=== PATIENT | female | born 1965 | race Caucasian/White ===

== ENCOUNTER 2016-12-16 16:27 | Emergency (ER) | payer MEDICAID ==
[~2016-12-16] VITALS: Ht 154.9 cm; Wt 81.6 kg
[2016-12-16 16:40] VITALS: BP 132/73
--- NOTE | 2016-12-16 17:26 | NUR ---
PT AMBULATED TO BED 3.
--- NOTE | 2016-12-16 17:28 | NUR ---
51F BIB FAMILY C/O RT RIB PAIN, THROBBING, NON-RADIATING, 8/10 X YESTERDAY; PT STATES FELL AND HURT RIB; DENIES LOC OR INJURY TO HEAD AT THIS TIME; NO BRUISING OR DISCOLORATION NOTED TO RT RIB AT THIS TIME; PT C/O NAUSEA, BUT DENIES V/D AT THIS TIME; ABDOMEN SOFT, NON-TENDER, ACTIVE BOWEL SOUNDS X 4 QUADRANTS; PT A&OX4, PERRLA, BL LUNG SOUNDS CLEAR, RR EVEN/UNLABORED, SKIN IS WARM/DRY/INTACT AT THIS TIME; PT RESTING IN BED W/ HOB ELEVATED AND IN LOWEST POSITION; POSITIONED FOR COMFORT; ER MD MADE AWARE OF STATUS. WILL CONTINUE TO MONITOR.
[2016-12-16] MEDS ORDERED: KETOROLAC 30 MG/ML VIAL IM ONE (17:30)
--- NOTE | 2016-12-16 17:30 | NUR ---
Patient being evaluated by physician at bedside.
[2016-12-16 18:11] VITALS: BP 120/69
--- NOTE | 2016-12-16 18:11 | NUR ---
Patient discharged with v/s stable. Written and verbal after care instructions given and explained. Patient alert, oriented and verbalized understanding of instructions. Ambulatory with steady gait. All questions addressed prior to discharge. ID band removed. Patient advised to follow up with PMD. Rx of MOTRIN 600MG TAB given. Patient educated on indication of medication including possible reaction and side effects. Opportunity to ask questions provided and answered.
== END 2016-12-16 18:11 | disposition home or self-care (01) ==
LOC: MED 16:27
DX: S20.20XA Contusion of thorax, unspecified, initial encounter (principal); W19.XXXA Unspecified fall, initial encounter; Y93.89 Activity, other specified; Y92.89 Other specified places as the place of occurrence of the external cause; Y99.8 Other external cause status
CPT/HCPCS: 71101; 96372; 99284; J1885

== ENCOUNTER 2017-03-01 09:24 | Emergency (ER) | payer SELFPAY ==
[~2017-03-01] VITALS: Ht 149.9 cm; Wt 87.3 kg
[2017-03-01 09:29] VITALS: BP 139/77
--- NOTE | 2017-03-01 09:36 | NUR ---
Pt taken to bed 6.
--- NOTE | 2017-03-01 09:51 | NUR ---
51/F c/o right sided body numbness x5 days. Pt [facility]. Pt c/o right leg numbness and pain. Pt states she also has numbness to right side of body. Lime Slaker and pushes strong and equal bilaterally. No facial droop noted. AOX4, clear speech, VSS. No distress noted.
--- NOTE | 2017-03-01 09:55 | NUR ---
Pt taken to CT via w/c.
--- NOTE | 2017-03-01 10:03 | NUR ---
Pt back from CT.
--- NOTE | 2017-03-01 10:27 | NUR ---
Pt ambulated to restroom with steady gait.
--- NOTE | 2017-03-01 10:39 | NUR ---
Patient being evaluated by Dr. Byrd at bedside.
--- NOTE | 2017-03-01 10:53 | NUR ---
Patient appears to be resting comfortably in bed. VSS.
[2017-03-01] MEDS ORDERED: KETOROLAC 60 MG/2 ML VIAL IM ONE (11:15)
[2017-03-01 11:55] VITALS: BP 111/69
--- NOTE | 2017-03-01 11:55 | NUR ---
Patient discharged with v/s stable. Written and verbal after care instructions given and explained. Patient alert, oriented and verbalized understanding of instructions. Ambulatory with steady gait. All questions addressed prior to discharge. ID band removed. Patient advised to follow up with PMD. Rx of NORCO AND MOTRIN given. Patient educated on indication of medication including possible reaction and side effects. Opportunity to ask questions provided and answered.
== END 2017-03-01 11:55 | disposition home or self-care (01) ==
LOC: MED 09:24
DX: R51 Headache (principal); R20.0 Anesthesia of skin; M54.2 Cervicalgia; I10 Essential (primary) hypertension; E78.5 Hyperlipidemia, unspecified; Z90.49 Acquired absence of other specified parts of digestive tract
CPT/HCPCS: 70450; 96372; 99284; J1885

== ENCOUNTER 2017-07-12 16:14 | Inpatient (IN) | payer MEDICAID ==
[~2017-07-12] VITALS: Ht 149.9 cm; Wt 89.8 kg
[2017-07-12 16:28] VITALS: BP 105/63
--- NOTE | 2017-07-12 16:33 | NUR ---
Patient ambulated to bed 08.
--- NOTE | 2017-07-12 16:38 | NUR ---
PATIENT PRESENTS TO ED WITH C/O COUGH AND HEADACHE . PT STATES SHE HAS BEEN COUGHING FOR 4 DAYS BUT THE COUGH HAS BECAME WORSE FOR THE LAST 2 DAYS. PATIENT REPORTS OF WAKING UP AT NIGHT FEELING BREATHLESS. PATIENT HAS NON PRODUCTIVE COUGH. DENIES N/V/D; SKIN IS PINK/WARM/DRY; AAOX4 WITH EVEN AND STEADY GAIT; LUNGS CLEAR BL; HR EVEN AND REGULAR; PT DENIES ANY FEVER, CP, SOB, OR COUGH AT THIS TIME; PATIENT STATES PAIN OF 7/10 AT THIS TIME; VSS; PATIENT POSITIONED FOR COMFORT; HOB ELEVATED; BEDRAILS UP X2; BED DOWN. ER MD MADE AWARE OF PT STATUS.
[2017-07-12] MEDS ORDERED: ACETAMIN/CODEINE 120/12MG-5ML 5 ML UDC PO ONE (17:00)
[2017-07-12] MEDS ORDERED: KETOROLAC 30 MG/ML VIAL IM ONE (17:00)
[2017-07-12] MEDS ORDERED: NACL 0.9% 3,000 ML IV ONE (17:27)
[2017-07-12] MEDS ORDERED: AZITHROMYCIN 500 MG in DEXTROSE 5% 250 ML IV ONE (17:30)
[2017-07-12] MEDS: NACL 0.9% 1,000 ML IV SCH (17:59)
[2017-07-12] MEDS ORDERED: ACETAMINOPHEN 325 MG TAB PO PRN (18:00)
[2017-07-12] MEDS ORDERED: ONDANSETRON 4 MG/2 ML VIAL IVP PRN (18:00)
[2017-07-12] MEDS ORDERED: AZITHROMYCIN 500 MG INJ VIAL IV ONE (18:01)
[2017-07-12] MEDS ORDERED: cefTRIAXone 1,000 MG VIAL ONE (18:02)
[2017-07-12 18:05] LABS: BASOPHILS # (AUTO) 0.2 K/uL (0.00-0.22); BASOPHILS % (AUTO) 2.2 % (0.0-2.0); EOSINOPHILS # (AUTO) 0.1 K/uL (0-0.4); HEMATOCRIT 39.8 % (36-48); HEMOGLOBIN 13.1 g/dL (12.0-16.0); LYMPHOCYTES # (AUTO) 2.3 K/uL (2.5-16.5); LYMPHOCYTES % (AUTO) 23.8 % (20.5-51.1); MEAN CORPUSCULAR HEMOGLOBIN 30 pg (27-31); MEAN CORPUSCULAR HGB CONC 33 g/dL (33-37); MEAN CORPUSCULAR VOLUME 91 fL (80-94); MONOCYTES # (AUTO) 0.8 K/uL (0.8-1.0); MONOCYTES % (AUTO) 8.6 % (1.7-9.3); NEUTROPHILS # (AUTO) 6.2 K/uL (1.8-7.7); NEUTROPHILS % (AUTO) 64.4 % (42.2-75.2); PLATELET COUNT (AUTO) 219 K/uL (140-450); RED BLOOD CELL COUNT(AUTO) 4.36 MIL/uL (4.20-5.40); WHITE BLOOD COUNT (AUTO) 9.6 K/uL (4.8-10.8)
[2017-07-12 18:18] LABS: ANION GAP 12.7 (8-16); CREATININE 0.8 mg/dL (0.6-1.3); POTASSIUM 3.7 mmol/L (3.5-5.1)
[2017-07-12] MEDS ORDERED: BENZ1LOZ98 MM (18:30)
[2017-07-12] MEDS ORDERED: IBUP-1842 PO (18:30)
[2017-07-12 18:34] LABS: ALBUMIN 3.3 g/dL (3.4-5.0); TOTAL BILIRUBIN 0.8 mg/dL (0.0-1.0)
[2017-07-12] MEDS ORDERED: CALER120 PO (18:40)
[2017-07-12] MEDS ORDERED: LOVA40TA4 PO (18:40)
[2017-07-12] MEDS ORDERED: GABA300C PO (18:40)
[2017-07-12 18:43] LABS: PROTHROMBIN TIME 10.4 secs (10.8-13.4)
--- NOTE | 2017-07-12 18:50 | NUR ---
Patient will be admitted to care of DR CRESPO. Admited to [facility]. Will go to room 119B. Belongings list completed. Report to ROSE ADAIR.
--- NOTE | 2017-07-12 18:50 | NUR ---
PT ARRIVED TO [facility] VIA GURNEY ACCOMPANIED BY MANAGER SUPPORT SERVICES AND FAMILY MEMBER. PT AMBULATED TO BED WITH ASSISTANCE. TELE MONITOR APPLIED. MRSA SWAB DONE. PT IN NO RESPIRATORY DISTRESS. O2 VIA NC 2L. O2 SATING AT 94%. CONTINUED IV INFUSION OF NS @50ML/HR AND AZITHROMAX IVPB. PT TOLERATING MEDS WELL. RECEIVED REPORT FROM ER NURSE. PT IN STABLE CONDITION. ORIENTED PT TO ROOM AND CALL LIGHT. WILL CONTINUE TO MONITOR.
--- NOTE | 2017-07-12 19:00 | NUR ---
RECEIVED CALL FOR LACTIC ACID 2.7. REPORTED TO DR. GUEVARA. WILL WAIT FOR REPEAT LABS AND NEW ORDERS.
[2017-07-12 19:05] LABS: APPEARANCE,URINE CLEAR (CLEAR); BILIRUBIN,URINE NEGATIVE (NEGATIVE); BLOOD, URINE NEGATIVE (NEGATIVE); COLOR,URINE YELLOW (YELLOW); LEUKOCYTE ESTERASE ,URINE NEGATIVE (NEGATIVE); NITRITE, URINE NEGATIVE (NEGATIVE); UGLUCOSE NEGATIVE (NEGATIVE)
--- NOTE | 2017-07-12 19:15 | NUR ---
ENDORSED PT TO OCCASIONAL CAREGIVER NURSE MIESHA AT BEDSIDE FOR CONTINUITY OF CARE. PT'S FAMILY MEMBER AT BEDSIDE. PT IN STABLE CONDITION.
--- NOTE | 2017-07-12 19:17 | NUR ---
RECEIVED REPORT FROM DAY SHIFT NURSE. PT LYING IN BED, FAMILY AT BED SIDE. AAOX4. IV TO RIGHT AC WITH NS @50 ML/HR. ON O2 AT 2L/MIN VIA NC. NO C/O PAIN OR SOB NOTED. DISCUSSED PLAN OF CARE, PT AND FAMILY VERBALIZED UNDERSTANDING. CALL LIGHT WITHIN REACH. WILL CONTINUE TO MONITOR.
[2017-07-12 19:19] LABS: BARBITURATE, URINE NEG. ng/ml (NEG <=200); BENZODIAZEPINE, URINE NEG. ng/mL (NEG <=200); CANNABINOID, URINE NEG. ng/mL (NEG <=50); COCAINE, URINE NEG. ng/mL (NEG <=300); OPIATE, URINE POS. ng/mL (NEG <=2000); PHENCYCLIDINE SCREEN,URINE NEG. ng/mL (NEG <=25)
[2017-07-12] MEDS ORDERED: ALBUTEROL SULFATE/IPRATROPIU 3 ML SOL IH PRN (19:20)
[2017-07-12 19:25] LABS: CHOL/HDL RATIO 3.9 (1-4.5); FREE T4 (FREE THYROXINE) 1.09 ng/dL (0.76-1.46); MAGNESIUM 2.1 mg/dL (1.8-2.4); PHOSPHORUS 2.4 mg/dL (2.5-4.9); THYROID STIMULATING HORMONE 1.53 uIU/mL (0.34-3.74)
[2017-07-12] MEDS: SODIUM PHOS / POTASSIUM PHOS 1 PKT PDR PO SCH (19:45)
[2017-07-12 20:00] VITALS: BP 102/66
--- NOTE | 2017-07-12 20:30 | NUR ---
ASSISTED PT TO THE BATHROOM. NO DISTRESS NOTED.
[2017-07-12] MEDS ORDERED: SODIUM PHOS / POTASSIUM PHOS 1 PKT PDR PO SCH (20:49)
--- NOTE | 2017-07-12 21:15 | NUR ---
SNACK GIVEN TO PT. NO DISTRESS NOTED. ALL NEEDS MET AT THIS TIME. CALL LIGHT WITHIN REACH.
[2017-07-12] MEDS: DOCUSATE SODIUM 100 MG GELCAP PO SCH (21:32)
[2017-07-12] MEDS ORDERED: guaiFENesin/CODEINE 100/10MG 5 ML UDC PO PRN (22:05)
[2017-07-12] MEDS ORDERED: BENZOCAINE/MENTHOL 1 LOZ MM PRN (22:05)
--- NOTE | 2017-07-12 23:40 | NUR ---
PT SLEEPING. NO S/S OF DISCOMFORT OR PAIN. NO COUGHING NOTED. CALL LIGHT WITHIN REACH.
[2017-07-13] VITALS: BP 97/62
--- NOTE | 2017-07-13 01:30 | NUR ---
SCD'S APPLIED. NO DISTRESS NOTED. CALL LIGHT WITHIN REACH.
[2017-07-13] MEDS: HYDROcodone/APAP 7.5/325 MG 1 TAB PO PRN ×2 (03:47→12:11)
[2017-07-13] MEDS ORDERED: CYCLOBENZAPRINE 10 MG TAB PO PRN (03:50)
--- NOTE | 2017-07-13 03:50 | NUR ---
PT C/O HEAD ACHE, ARM AND CHEST PAIN. PT'S V/S WITHIN NORMAL LIMITS. DR. GUEVARA CAME TO SEE PT. ORDERED TO GIVE NORCO. ORDER CARRIED OUT.
[2017-07-13] MEDS ORDERED: ZOLPIDEM 5 MG TAB PO SCH (03:51)
[2017-07-13] MEDS ORDERED: NITROGLYCERIN 0.4 MG TAB SL PRN (03:55)
[2017-07-13 04:00] VITALS: BP 112/71
--- NOTE | 2017-07-13 05:30 | NUR ---
PT SLEEPING. NO S/S OF PAIN OR DISCOMFORT. CALL LIGHT WITHIN REACH.
--- NOTE | 2017-07-13 07:05 | NUR ---
ASSUMED CONTINUITY OF CARE. NO SIGNS AND SYMPTOMS OF ACUTE DISTRESS NOTED. INITIAL ASSESSMENT DONE. KEEP COMFORTABLE ON BED. EXPLAINED DIAGNOSIS, PLAN OF CARE, PAIN MANAGEMENT TEACHING, USE OF CALL LIGHT/BED/TV/BATHROOM. VERBALIZED UNDERSTANDING. CALL LIGHT WITHIN REACH.
--- NOTE | 2017-07-13 07:05 | NUR ---
ENDORSED PT TO DAY SHIFT NURSE. PT IN STABLE CONDITION.
--- NOTE | 2017-07-13 07:10 | NUR ---
Patient's Plan of Care was discussed and reviewed with BRIDGETT: AZIZA
[2017-07-13 07:15] LABS: BASOPHILS # (AUTO) 0.1 K/uL (0.00-0.22); BASOPHILS % (AUTO) 1.4 % (0.0-2.0); EOSINOPHILS # (AUTO) 0.1 K/uL (0-0.4); EOSINOPHILS % (AUTO) 1.3 % (0.0-4.0); HEMATOCRIT 35.2 % (36-48); LYMPHOCYTES # (AUTO) 1.3 K/uL (2.5-16.5); MEAN CORPUSCULAR HEMOGLOBIN 31 pg (27-31); MEAN CORPUSCULAR HGB CONC 34 g/dL (33-37); MEAN CORPUSCULAR VOLUME 91 fL (80-94); MONOCYTES # (AUTO) 0.5 K/uL (0.8-1.0); MONOCYTES % (AUTO) 5.3 % (1.7-9.3); NEUTROPHILS # (AUTO) 7.4 K/uL (1.8-7.7); PLATELET COUNT (AUTO) 203 K/uL (140-450); RED BLOOD CELL COUNT(AUTO) 3.89 MIL/uL (4.20-5.40); RED CELL DISTRIBUTION WIDTH 11.9 % (11.6-13.7); WHITE BLOOD COUNT (AUTO) 9.4 K/uL (4.8-10.8)
[2017-07-13 07:16] LABS: ANION GAP 8.7 (8-16); CARBON DIOXIDE 27.5 mmol/L (21-32); CREATININE 0.6 mg/dL (0.6-1.3); POTASSIUM 3.2 mmol/L (3.5-5.1)
[2017-07-13] MEDS: ALBUTEROL SULFATE/IPRATROPIU 3 ML SOL IH SCH ×3 (07:21→20:20)
--- NOTE | 2017-07-13 07:35 | NUR ---
TOLERATED INCENTIVE SPIROMETRY THERAPY WELL WITHOUT ADVERSE REACTIONS NOTED ENCOURAGED PATIENT WITH ACKNOWLEDGEMENT TO USE EVRY 1-2 HOURS WHILE AWAKE SPECIMEN CUP ON PATIENT TABLE FOR SPUTUM SAMPLE PATIENT AWARE
[2017-07-13 08:00] VITALS: BP 105/60
[2017-07-13 08:06] LABS: MAGNESIUM 1.9 mg/dL (1.8-2.4)
[2017-07-13] MEDS: ASPIRIN 81 MG TAB.CHEW PO SCH (08:34)
[2017-07-13] MEDS: SODIUM PHOS / POTASSIUM PHOS 1 PKT PDR PO SCH ×3 (08:34→16:49)
[2017-07-13] MEDS: DOCUSATE SODIUM 100 MG GELCAP PO SCH ×2 (08:35→20:33)
[2017-07-13] MEDS: LACTOBACILLUS RHAMNOSUS GG 1 EACH CAP PO SCH (08:35)
[2017-07-13] MEDS: AZITHROMYCIN 250 MG TAB PO SCH (08:36)
[2017-07-13] MEDS: GABAPENTIN 300 MG CAP PO SCH (08:36)
[2017-07-13] MEDS: METOPROLOL 25 MG TAB PO SCH ×2 (09:00→20:37)
[2017-07-13] MEDS: LISINOPRIL 5 MG TAB PO SCH (09:00)
[2017-07-13] MEDS ORDERED: PANTOPRAZOLE 40 MG INJ VIAL IVP SCH (09:00)
[2017-07-13] MEDS: VERAPAMIL 120 MG CAPER PO SCH ×3 (09:00→16:49)
--- NOTE | 2017-07-13 10:35 | NUR ---
INFORMED DR. CHIU ABOUT PT. POTASSIUM 3.2. PER DR. CHIU SHE WILL TAKE CARE OF IT. INFORMED CHARGE NURSE CONRAD COLE.
[2017-07-13 12:00] VITALS: BP 102/67
--- NOTE | 2017-07-13 13:10 | NUR ---
LOC AWAKE AND ALERT PATIENT UNABLE TO PRODUCE SPUTUM VIA OROPHARYNX BOATSWAINS MATE VIA JODI/EVS NASO-TRACHEAL PROCEDURE EXPLAINED TO PATIENT WITH ACKNOWLEDGEMENT STERILE PROCEDURE PERFORMED LUBRICATED 10FR CATHETER INSERTED THROUGH RIGHT NARES OBTAINED LARGE THICK BLOOD TINGE SECRETIONS SUPPLEMENTAL OXYGEN PROVIDED PRE AND POST TOLERATED PROCEDURE WELL FOLLOW BY [facility]ERAP[facility]
[2017-07-13] MEDS ORDERED: POTASSIUM CHLORIDE 10 MEQ TABER PO SCH (13:15)
[2017-07-13] MEDS: NACL 0.9% 1,000 ML IV SCH (13:59)
[2017-07-13] MEDS ORDERED: CALCIUM CARBONATE 500 MG TAB PO SCH (15:00)
[2017-07-13 16:00] VITALS: BP 110/59
--- NOTE | 2017-07-13 19:10 | NUR ---
BEDSIDE REPORT GIVEN TO ESTEBAN MESA -ROSE. IVF INFUSING WELL. IN STABLE CONDITION.
--- NOTE | 2017-07-13 19:30 | NUR ---
RECIEVED PATIENT ON BED ALERT AND OREINTED SHORT OF BREATH ON EXERTION ON 2L NASAL CANNULLA O2 SAT 88 % ,O2 INCREASED TO 4L RESPIRATORY THERAPIST INFORMED FOR BREATHING TX . O2 SATS WENT UP TO 94% ON 4L , rESP THERAPIST WILL GIVE BREATHING TX. RESIDENT MD TALKED TO PATIENT PER PATIENT AND FAMILY REQUEST RE MEDICATION CONCERN AND HEADACHE.
[2017-07-13 20:00] VITALS: BP 118/76
[2017-07-13] MEDS: ATORVASTATIN 20 MG TAB PO SCH ×2 (20:32→20:37)
[2017-07-13] MEDS: ASPIRIN PO PRN (20:33)
[2017-07-13] MEDS: ZOLPIDEM 5 MG TAB PO SCH (20:33)
[2017-07-13] MEDS: CODEINE PO PRN (20:33)
[2017-07-13] MEDS: CAFFEINE PO PRN (20:33)
[2017-07-13] MEDS: BUTALBITAL PO PRN (20:33)
--- NOTE | 2017-07-13 22:00 | NUR ---
ALFREDO WITH CODIENE 1 TAB FOR HEADACHE AND ROBITUSSIN 5ML FOR COUGH WAS GIVEN AT 2032 , PATIENT NOW RESTING HEADCHE RELIEVED AND NO COUGH NOTED AT THIS TIME WILL CONTINUE MONITOR PATIENT.
[2017-07-14 04:00] VITALS: BP 118/74
[2017-07-14] MEDS: CODEINE PO PRN ×4 (04:40→23:39)
[2017-07-14] MEDS: CAFFEINE PO PRN ×4 (04:40→23:39)
[2017-07-14] MEDS: BUTALBITAL PO PRN ×4 (04:40→23:39)
[2017-07-14] MEDS: ASPIRIN PO PRN ×4 (04:40→23:39)
[2017-07-14] MEDS: NACL 0.9% 1,000 ML IV SCH (04:42)
[2017-07-14 07:10] LABS: BASOPHILS # (AUTO) 0.2 K/uL (0.00-0.22); BASOPHILS % (AUTO) 1.8 % (0.0-2.0); EOSINOPHILS # (AUTO) 0.1 K/uL (0-0.4); EOSINOPHILS % (AUTO) 1.3 % (0.0-4.0); HEMATOCRIT 34.2 % (36-48); HEMOGLOBIN 11.8 g/dL (12.0-16.0); LYMPHOCYTES # (AUTO) 1.6 K/uL (2.5-16.5); LYMPHOCYTES % (AUTO) 15.7 % (20.5-51.1); MEAN CORPUSCULAR HEMOGLOBIN 31 pg (27-31); MEAN CORPUSCULAR HGB CONC 34 g/dL (33-37); MEAN CORPUSCULAR VOLUME 90 fL (80-94); MONOCYTES # (AUTO) 0.7 K/uL (0.8-1.0); MONOCYTES % (AUTO) 6.3 % (1.7-9.3); NEUTROPHILS # (AUTO) 7.8 K/uL (1.8-7.7); NEUTROPHILS % (AUTO) 74.9 % (42.2-75.2); PLATELET COUNT (AUTO) 196 K/uL (140-450); RED BLOOD CELL COUNT(AUTO) 3.79 MIL/uL (4.20-5.40); RED CELL DISTRIBUTION WIDTH 11.8 % (11.6-13.7); WHITE BLOOD COUNT (AUTO) 10.4 K/uL (4.8-10.8)
--- NOTE | 2017-07-14 07:10 | NUR ---
ASSUMED CONTINUITY OF CARE. NO SIGNS AND SYMPTOMS OF ACUTE DISTRESS NOTICED. INITIAL ASSESSMENT DONE. PT. FAMILY MEMBERS ON BEDSIDE. EXPLAINED DIAGNOSIS, PLAN OF CARE, PAIN MANAGEMENT TEACHING, USE OF CALL LIGHT/BED/TV/BATHROOM. VERBALIZED UNDERSTANDING. CALL LIGHT WITHIN REACH.
[2017-07-14 07:24] LABS: CARBON DIOXIDE 28.5 mmol/L (21-32); CREATININE 0.6 mg/dL (0.6-1.3); POTASSIUM 3.5 mmol/L (3.5-5.1)
[2017-07-14] MEDS: ALBUTEROL SULFATE/IPRATROPIU 3 ML SOL IH SCH ×3 (07:37→18:54)
[2017-07-14 07:38] LABS: MAGNESIUM 1.8 mg/dL (1.8-2.4); PHOSPHORUS 3.2 mg/dL (2.5-4.9)
--- NOTE | 2017-07-14 07:41 | NUR ---
NASAL CANNULA TITRATED TO 3L. PT NOT SOB AND NOT IN RESPIRATORY DISTRESS AT THIS TIME. WILL CONTINUE TO MONITOR.
[2017-07-14 08:00] VITALS: BP 120/70
[2017-07-14] MEDS: LISINOPRIL 5 MG TAB PO SCH (08:46)
[2017-07-14] MEDS: GABAPENTIN 300 MG CAP PO SCH (08:46)
[2017-07-14] MEDS: VERAPAMIL 120 MG CAPER PO SCH ×3 (08:46→16:58)
[2017-07-14] MEDS: CALCIUM CARBONATE 500 MG TAB PO SCH (08:47)
[2017-07-14] MEDS: ATORVASTATIN 20 MG TAB PO SCH ×2 (08:47→21:27)
[2017-07-14] MEDS: DOCUSATE SODIUM 100 MG GELCAP PO SCH ×2 (08:48→21:26)
[2017-07-14] MEDS: METOPROLOL 25 MG TAB PO SCH ×2 (08:48→21:27)
[2017-07-14] MEDS: LACTOBACILLUS RHAMNOSUS GG 1 EACH CAP PO SCH (08:48)
[2017-07-14] MEDS: ASPIRIN 81 MG TAB.CHEW PO SCH (08:49)
[2017-07-14] MEDS: AZITHROMYCIN 250 MG TAB PO SCH (08:49)
[2017-07-14] MEDS: SODIUM PHOS / POTASSIUM PHOS 1 PKT PDR PO SCH ×3 (08:50→16:58)
[2017-07-14] MEDS ORDERED: FUROSEMIDE 20 MG/2 ML VIAL IVP SCH (09:00)
[2017-07-14 09:20] VITALS: BP 125/68
--- NOTE | 2017-07-14 09:26 | NUR ---
PATIENT HAS BEEN SCREENED AND CATEGORIZED HIGH NUTRITION RISK. PATIENT WILL BE SEEN WITHIN 1-2 DAYS OF ADMISSION. 07/13/17-07/14/[address]
--- NOTE | 2017-07-14 11:47 | NUR ---
SPO2 ON 3L NC 96%. NC TITRATED DOWN TO 2L. PT NOT SOB AND NOT IN RESPIRATORY DISTRESS AT THIS TIME . WILL CONTINUE TO MONITOR.
[2017-07-14 12:00] VITALS: BP 112/61
--- NOTE | 2017-07-14 13:51 | NUR ---
07/14/17 RD INITIAL ASSESSMENT COMPLETED PLEASE REFER TO NUTRITION ASSESSMENT UNDER CARE ACTIVITY FOR ESTIMATED NUTRITIONAL NEEDS. RD RECOMMENDATIONS: 1. CONTINUE REGULAR DIET TOLERATED. -NOTE PT WITH GOOD APPETITE, MEETING 100% OF ESTIMATED NUTRITION NEEDS. 2. RD PROVIDED VERBAL DIET EDUCATION AND HANDOUTS TO PT ON LOWERING CHOLESTEROL REQUESTED BY PT. 3. RD WILL F/U 7 DAYS; LOW RISK. AGUEDA MCHUGH RD
--- NOTE | 2017-07-14 14:44 | NUR ---
AMBULATES ON HALLWAY WITHOUT ASSISTANCE. TOLERATED WELL. NO C/O PAIN. NO SOB, NOTED.
[2017-07-14 16:00] VITALS: BP 100/59
--- NOTE | 2017-07-14 18:05 | NUR ---
IV ACCESS ON RIGHT AC GAUGE #20 INFILTRATED, D/C AND REMOVED. INSERTED NEW IV ACCESS ON LEFT HAND WITH GAUGE #20. TOLERATED WELL.
--- NOTE | 2017-07-14 19:22 | NUR ---
BEDSIDE REPORT GIVEN TO MOUNIKA COLE. IVF INFUSING WELL. IN STABLE CONDITION.
--- NOTE | 2017-07-14 19:30 | NUR ---
RECEIVED REPORT FROM AM NURSE. PT IS AAOX4. ON 02 2L VIA NC. FAMILY AT THE BEDSIDE. NO SIGNS OF ACUTE DISTRESS. RESPIRATIONS EVEN AND UNLABORED. SKIN TEMP WARM TO TOUCH, SKIN COLOR APPROPRIATE TO ETHNICITY. IV ACCESS INTACT, PATENT AND ASYMPTOMATIC. PLAN OF CARE DISCUSSED, PT VERBALIZED UNDERSTANDING. ALL SAFETY MEASURES IN PLACE, BED IN LOW POSITION, BILATERAL HALF SIDE RAILS UP, CALL LIGHT WITHIN REACH, WILL CONTINUE TO MONITOR.
[2017-07-14 20:00] VITALS: BP 106/63
[2017-07-14] MEDS: ZOLPIDEM 5 MG TAB PO SCH (21:26)
--- NOTE | 2017-07-14 23:15 | NUR ---
PT IS SLEEPING, AROUSABLE TO VOICE. NO SIGNS OF ACUTE DISTRESS NOTED. RESPIRATIONS EVEN AND UNLABORED. BED IN LOW POSITION, BILATERAL HALF SIDE RAILS UP, CALL LIGHT WITHIN REACH, WILL CONTINUE TO MONITOR.
[2017-07-15] VITALS: BP 112/66
[2017-07-15] MEDS: BUTALBITAL PO PRN (06:40)
[2017-07-15] MEDS: ASPIRIN PO PRN (06:40)
[2017-07-15] MEDS: CODEINE PO PRN (06:40)
[2017-07-15] MEDS: CAFFEINE PO PRN (06:40)
[2017-07-15 06:57] LABS: BASOPHILS # (AUTO) 0.2 K/uL (0.00-0.22); BASOPHILS % (AUTO) 3.5 % (0.0-2.0); EOSINOPHILS # (AUTO) 0.2 K/uL (0-0.4); EOSINOPHILS % (AUTO) 2.8 % (0.0-4.0); HEMATOCRIT 35.1 % (36-48); LYMPHOCYTES # (AUTO) 1.6 K/uL (2.5-16.5); LYMPHOCYTES % (AUTO) 22.3 % (20.5-51.1); MEAN CORPUSCULAR HEMOGLOBIN 31 pg (27-31); MEAN CORPUSCULAR HGB CONC 34 g/dL (33-37); MEAN CORPUSCULAR VOLUME 91 fL (80-94); MONOCYTES # (AUTO) 0.5 K/uL (0.8-1.0); MONOCYTES % (AUTO) 7.1 % (1.7-9.3); NEUTROPHILS # (AUTO) 4.5 K/uL (1.8-7.7); NEUTROPHILS % (AUTO) 64.3 % (42.2-75.2); PLATELET COUNT (AUTO) 212 K/uL (140-450); RED BLOOD CELL COUNT(AUTO) 3.88 MIL/uL (4.20-5.40); RED CELL DISTRIBUTION WIDTH 11.9 % (11.6-13.7)
[2017-07-15 07:08] LABS: CARBON DIOXIDE 30.4 mmol/L (21-32); CREATININE 0.7 mg/dL (0.6-1.3); POTASSIUM 3.4 mmol/L (3.5-5.1)
[2017-07-15 07:18] LABS: MAGNESIUM 1.8 mg/dL (1.8-2.4)
--- NOTE | 2017-07-15 07:30 | NUR ---
ENDORSED PT TO AM NURSE FOR CONTINUITY OF CARE. PT IS IN STABLE CONDITION.
--- NOTE | 2017-07-15 07:35 | NUR ---
ENDORSEMENT RECEIVED FROM MEMBERSHIP ADVISOR NURSE. PATIENT'S RESPIRATION EVEN, UNLABOR. SKIN DRY AND WARM. CALL LIGHT WITHIN REACH. WILL CONTINUE TO MONITOR.
[2017-07-15] MEDS: ALBUTEROL SULFATE/IPRATROPIU 3 ML SOL IH SCH ×2 (07:57→13:10)
[2017-07-15 08:00] VITALS: BP 108/65
--- NOTE | 2017-07-15 08:00 | NUR ---
PATIENT IS AWAKE, ALERT, SITTING ON THE CHAIR. RESPIRATION EVEN, LUNGS SOUND CLEAR THROUGHOUT. CARDIAC WITH S1,S2 PRESENT. BOWEL SOUNDS ACTIVE ALL 4 QUADRANTS. IV 20G LEFT HAND PATENT AND INTACT. DENIED PAIN, SOB AT THIS TIME. CALL LIGHT WITHIN REACH. WILL CONTINUE TO MONITOR
[2017-07-15] MEDS: SODIUM PHOS / POTASSIUM PHOS 1 PKT PDR PO SCH ×2 (08:44→12:27)
[2017-07-15] MEDS: ATORVASTATIN 20 MG TAB PO SCH (08:44)
[2017-07-15] MEDS: GABAPENTIN 300 MG CAP PO SCH (08:45)
[2017-07-15] MEDS: METOPROLOL 25 MG TAB PO SCH (08:45)
[2017-07-15] MEDS: CALCIUM CARBONATE 500 MG TAB PO SCH (08:45)
[2017-07-15] MEDS: LACTOBACILLUS RHAMNOSUS GG 1 EACH CAP PO SCH (08:45)
[2017-07-15] MEDS: VERAPAMIL 120 MG CAPER PO SCH ×2 (08:46→12:31)
[2017-07-15] MEDS: ASPIRIN 81 MG TAB.CHEW PO SCH (08:46)
[2017-07-15] MEDS: LISINOPRIL 5 MG TAB PO SCH (08:46)
[2017-07-15] MEDS: DOCUSATE SODIUM 100 MG GELCAP PO SCH (08:46)
[2017-07-15] MEDS: AZITHROMYCIN 250 MG TAB PO SCH (08:46)
--- NOTE | 2017-07-15 10:30 | NUR ---
PATIENT IS SLEEPING COMFORTABLY, EASILY AROUSABLE BY NAME. FAMILY AT BEDSIDE. NEW IV WAS PLACED ON RIGHT AC. PATIENT TOLERATED WELL. CALL LIGHT WITHIN REACH. WILL CONTINUE TO MONITOR
[2017-07-15 12:15] VITALS: BP 116/74
--- NOTE | 2017-07-15 12:30 | NUR ---
PATIENT AWAKE, ALERT, EATING LUNCH AT BEDSIDE. RESPIRATION EVEN. NO DISTRESS NOTED. DENIED PAIN AT THIS TIME. FAMILY AT BEDSIDE. CALL LIGHT WITHIN REACH. WILL CONTINUE TO MONITOR
--- NOTE | 2017-07-15 14:30 | NUR ---
PT SITTING UP IN BED TALKING WITH FAMILY WITHOUT PROBLEM, O2SAT 98% WITH 2L NC, OXYGEN REMOVED FOR ROOM AIR TRIAL, WILL CONTINUE TO MONITOR.,
[2017-07-15] MEDS ORDERED: AZIT250T11 PO (14:53)
[2017-07-15] MEDS ORDERED: POTASSIUM CHLORIDE 10 MEQ TABER PO SCH (15:18)
[2017-07-15] MEDS ORDERED: CYCLOBENZAPRINE 10 MG TAB PO PRN (15:21)
[2017-07-15] MEDS ORDERED: PNEUMOCOCCAL VACCINE 23 MCG/0.5 ML VIAL IMVAC SCH (15:30)
[2017-07-15] MEDS ORDERED: INFLUENZA VIRUS VACCINE QUAD 0.5 ML SYR IMVAC SCH (15:30)
--- NOTE | 2017-07-15 16:05 | NUR ---
DC INSTRUCTION AND RX INFO GIVEN AND EXPLAINED TO PT AND FAMILY, THEY VERBALIZED FULL UNDERSTANDING, PT O2SAT 94% ON ROOM AIR, IV DC'D CATH TIP INTACT X2, BLEEDING CONTROLLED, VACCINES GIVEN PER PROTOCOL, PT UP OUT OF BED WITHOUT PROBLEM, PT ESCORTED OUT IN WHEELCHAIR, DC HOME NOW WITH FAMILY.
== END 2017-07-15 16:05 | disposition home or self-care (01) | DRG 133 ==
LOC: MED 16:14 → MTU 18:28
PROVIDERS: ADMIT Family Medicine; ATTEND Family Medicine
PROC: 3E0234Z Introduction of Serum, Toxoid and Vaccine into Muscle, Percutaneous Approach (ICD-10-PCS; principal; 2017-07-15)
DX: J96.00 Acute respiratory failure, unspecified whether with hypoxia or hypercapnia (principal); J18.9 Pneumonia, unspecified organism; Z68.41 Body mass index [BMI] 40.0-44.9, adult; E44.1 Mild protein-calorie malnutrition; M94.0 Chondrocostal junction syndrome [Tietze]; K21.9 Gastro-esophageal reflux disease without esophagitis; E78.5 Hyperlipidemia, unspecified; E66.01 Morbid (severe) obesity due to excess calories; E83.39 Other disorders of phosphorus metabolism; E87.6 Hypokalemia; I10 Essential (primary) hypertension; E83.51 Hypocalcemia; Z90.49 Acquired absence of other specified parts of digestive tract; Z23 Encounter for immunization
CPT/HCPCS: 36415; 71010; 71275; 80048; 80053; 80305; 81003; 82140; 82150; 82948; 83036; 83605; 83690; 83735; 83880; 84100; 84439; 84443; 84484; 85025; 85610; 85730; 87040; 87070; 87081; 87086; 87205; 89220; 90658; 90732; 93005; 94640; 96365; 96372; 99285; J0456; J0696; J1885; J1940; J7030; J7060; J7620; Q0092; Q9967

== ENCOUNTER 2017-07-16 23:01 | Emergency (ER) | payer MEDICAID ==
[~2017-07-16] VITALS: Ht 149.9 cm; Wt 87.3 kg
[~2017-07-16 23:01] MED LIST: AZIT250T11 PO; BENZ1LOZ98 MM; CALER120 PO; GABA300C PO; IBUP-1842 PO; LOVA40TA4 PO
[2017-07-16 23:09] VITALS: BP 118/68
[2017-07-16] MEDS ORDERED: ALBUTEROL 0.083% 2.5 MG/3 ML NEBU INH ONE (23:40)
[2017-07-16] MEDS ORDERED: KETOROLAC 30 MG/ML VIAL IM ONE (23:40)
[2017-07-16] MEDS ORDERED: predniSONE 20 MG TAB PO ONE (23:40)
[2017-07-16] MEDS ORDERED: predniSONE 20 MG TAB ONE (23:54)
[2017-07-17] MEDS ORDERED: predniSONE 20 MG TAB ONE (00:08)
[2017-07-17] MEDS ORDERED: NACL 0.9% 500 ML IV ONE (00:40)
[2017-07-17 02:54] VITALS: BP 112/63
== END 2017-07-17 02:54 | disposition home or self-care (01) ==
LOC: MED 23:01
DX: J98.01 Acute bronchospasm (principal); R09.1 Pleurisy; I10 Essential (primary) hypertension; Z79.899 Other long term (current) drug therapy
CPT/HCPCS: 36415; 71010; 71260; 84484; 85379; 94640; 94760; 96360; 96372; 99285; J1885; J7030; J7512; J7613; Q0092; Q9967

== ENCOUNTER 2017-08-30 17:18 | Emergency (ER) | payer MEDICAID ==
[~2017-08-30] VITALS: Ht 149.9 cm; Wt 86.2 kg
[2017-08-30 17:20] VITALS: BP 126/72
--- NOTE | 2017-08-30 17:23 | NUR ---
TO LOBBY, A/W BED, VSBerry , MENDEZ, ERMTaryn NOTED
--- NOTE | 2017-08-30 18:04 | NUR ---
PATIENT TO BED 2 AT THIS TIME.
--- NOTE | 2017-08-30 18:05 | NUR ---
52/F BIB FAMILY C/O COUGH , SORE THROAT ,HEADACHE & BOTH EAR PAIN & DIZZINESS FOR 3 DAYS, LAST NIGHT WITH FEVER. DENIES N/V/D; SKIN IS PINK/WARM/DRY; AAOX4 WITH EVEN AND STEADY GAIT; LUNGS CLEAR BL; HR EVEN AND REGULAR; PATIENT STATES PAIN OF 7/10 AT THIS TIME. PATIENT POSITIONED FOR COMFORT; HOB ELEVATED; BEDRAILS UP X2; BED DOWN. ER MD MADE AWARE OF PT STATUS.
--- NOTE | 2017-08-30 19:10 | NUR ---
Pt report given to ROSE BEAN. Transfer of care at this time.
--- NOTE | 2017-08-30 19:15 | NUR ---
REPORT RECEIVED FROM ROSE ALVARES
[2017-08-30] MEDS ORDERED: KETOROLAC 60 MG/2 ML VIAL IM ONE (19:25)
--- NOTE | 2017-08-30 20:01 | NUR ---
UA SENT TO LAB
[2017-08-30 20:35] LABS: BASOPHILS # (AUTO) 0.3 K/uL (0.00-0.22); EOSINOPHILS # (AUTO) 0.1 K/uL (0-0.4); HEMATOCRIT 37.9 % (36-48); HEMOGLOBIN 13.1 g/dL (12.0-16.0); LYMPHOCYTES # (AUTO) 2.4 K/uL (2.5-16.5); MEAN CORPUSCULAR HEMOGLOBIN 31 pg (27-31); MEAN CORPUSCULAR HGB CONC 35 g/dL (33-37); MEAN CORPUSCULAR VOLUME 88 fL (80-94); MONOCYTES # (AUTO) 0.5 K/uL (0.8-1.0); NEUTROPHILS # (AUTO) 2.4 K/uL (1.8-7.7); PLATELET COUNT (AUTO) 235 K/uL (140-450); RED BLOOD CELL COUNT(AUTO) 4.31 MIL/uL (4.20-5.40); RED CELL DISTRIBUTION WIDTH 12.8 % (11.6-13.7); WHITE BLOOD COUNT (AUTO) 5.7 K/uL (4.8-10.8)
[2017-08-30 20:41] LABS: APPEARANCE,URINE CLEAR (CLEAR); BILIRUBIN,URINE NEGATIVE (NEGATIVE); BLOOD, URINE NEGATIVE (NEGATIVE); COLOR,URINE YELLOW (YELLOW); LEUKOCYTE ESTERASE ,URINE NEGATIVE (NEGATIVE); NITRITE, URINE NEGATIVE (NEGATIVE); PH,URINE 6.5 (5.0-9.0); UGLUCOSE NEGATIVE (NEGATIVE)
[2017-08-30 22:22] LABS: CARBON DIOXIDE 28.3 mmol/L (21-32); CREATININE 0.8 mg/dL (0.6-1.3); POTASSIUM 3.3 mmol/L (3.5-5.1); TOTAL BILIRUBIN 0.6 mg/dL (0.0-1.0)
[2017-08-30 22:23] LABS: ALBUMIN 3.5 g/dL (3.4-5.0)
[2017-08-30 22:35] VITALS: BP 136/76
--- NOTE | 2017-08-30 22:35 | NUR ---
Patient discharged with v/s stable. Written and verbal after care instructions given and explained. Patient alert, oriented and verbalized understanding of instructions. Ambulatory with steady gait. All questions addressed prior to discharge. ID band removed. Patient advised to follow up with PMD. Rx of TRAMADOL AND AUGMENTIN given. Patient educated on indication of medication including possible reaction and side effects. Opportunity to ask questions provided and answered.
== END 2017-08-30 22:36 | disposition home or self-care (01) ==
LOC: MED 17:18
DX: H66.91 Otitis media, unspecified, right ear (principal); H92.03 Otalgia, bilateral; R51 Headache; R94.31 Abnormal electrocardiogram [ECG] [EKG]; I10 Essential (primary) hypertension; E78.5 Hyperlipidemia, unspecified; Z90.49 Acquired absence of other specified parts of digestive tract; Z79.899 Other long term (current) drug therapy
CPT/HCPCS: 36415; 71045; 80053; 81003; 81025; 84484; 85025; 87804; 96372; 99285; J1885; Q0092

== ENCOUNTER 2017-09-19 21:56 | Emergency (ER) | payer MEDICAID ==
[~2017-09-19] VITALS: Ht 160 cm; Wt 86.2 kg
[2017-09-19 22:05] VITALS: BP 150/90
--- NOTE | 2017-09-19 23:02 | NUR ---
PT AMBULATED TO BED 1.
--- NOTE | 2017-09-19 23:16 | NUR ---
PT C/O RIGHT HAND PAIN, S/P BOX FALLING ON HER HAND AT THE MARKET. RT HAND IS SWOLLEN AND REDDENED TO BACK OF HAND. PT STATES PAIN 7/10, RADIATING TO RT SHOULDER. PT TOOK IBUPROFEN AT HOME AT 2PM. +CMS. HX HIGH CHOLESTEROL
--- NOTE | 2017-09-20 01:50 | NUR ---
PATIENT REPORTS ELBOW PAIN. ER MD DR. DE LOS SANTOS MADE AWARE.
--- NOTE | 2017-09-20 02:20 | NUR ---
GRAIN COMBINE DRIVER RIGOBERTO AT BEDSIDE.
[2017-09-20 02:38] VITALS: BP 149/80
--- NOTE | 2017-09-20 02:38 | NUR ---
Patient discharged with v/s stable. Written and verbal after care instructions given and explained. Patient alert, oriented and verbalized understanding of instructions. Ambulatory with steady gait. All questions addressed prior to discharge. ID band removed. Patient advised to follow up with PMD. Rx of IBUPROFEN 600MG given. Patient educated on indication of medication including possible reaction and side effects. Opportunity to ask questions provided and answered.
== END 2017-09-20 02:38 | disposition home or self-care (01) ==
LOC: MED 21:56
DX: S60.221A Contusion of right hand, initial encounter (principal); E78.00 Pure hypercholesterolemia, unspecified; Z90.49 Acquired absence of other specified parts of digestive tract; W22.09XA Striking against other stationary object, initial encounter; Y93.89 Activity, other specified; Y92.89 Other specified places as the place of occurrence of the external cause; Y99.8 Other external cause status
CPT/HCPCS: 29125; 73030; 73080; 73130; 99284; Q0092

== ENCOUNTER 2018-02-08 07:18 | Inpatient (IN) | payer MEDICAID ==
[~2018-02-08] VITALS: Ht 160 cm; Wt 90.7 kg
[2018-02-08 07:28] VITALS: BP 124/84
--- NOTE | 2018-02-08 07:28 | NUR ---
PT AMBULATED TO BED 9. TRIAGED AT BEDSIDE. EKG IN PROGRESS.
--- NOTE | 2018-02-08 07:33 | NUR ---
REPORT GIVEN TO MARÍA ROSE.
--- NOTE | 2018-02-08 07:38 | NUR ---
52 YO F BIB DTR W/ C/O MEDIAL CHEST PAIN 9/10 AND HEADACHE THAT IS SHARP AND BEGAN AT 0300 THIS MORNING. PAIN RADIATES FROM CHEST TO HER LOW BACK. PT REPORTS FEELING NAUSEOUS BUT DENIES VOMITING. PT REPORTS HAVING INTERMITTENT FEVER. AAOX4. GCS 15. CMS INTACT. RR EVEN AND UNLABORED. LUNGS BILATERALLY CLEAR. EKG SHOWED SINUES TACHYCARDIA AT THIS TIME W/ PULSE RATE OF 101. PT SPEAKS IN CLEAR, FULL, AND COMPLETE SENTENCES. AWAKE AND ALERT. ER MD VIERA NOTIFIED. PT NEEDS MET. SAFETY PRECAUTIONS IN PLACE. WILL CONTINUE TO MONITOR.
[2018-02-08] MEDS ORDERED: KETOROLAC 30 MG/ML VIAL IVP ONE (07:55)
--- NOTE | 2018-02-08 08:01 | NUR ---
XRAY AT BEDSIDE AT THIS TIME.
[2018-02-08] MEDS ORDERED: NACL 0.9% 1,000 ML IV ONE ×2 (08:05→10:55)
[2018-02-08] MEDS ORDERED: ONDANSETRON 4 MG/2 ML VIAL IVP ONE (08:05)
[2018-02-08 08:10] LABS: BASOPHILS % (AUTO) 0.5 % (0.0-2.0); EOSINOPHILS # (AUTO) 0.1 K/uL (0-0.4); EOSINOPHILS % (AUTO) 2.4 % (0.0-4.0); HEMATOCRIT 40.6 % (36-48); LYMPHOCYTES % (AUTO) 17.9 % (20.5-51.1); MEAN CORPUSCULAR HEMOGLOBIN 31 pg (27-31); MEAN CORPUSCULAR HGB CONC 35 g/dL (33-37); MEAN CORPUSCULAR VOLUME 90.6 fL (80-94); MONOCYTES # (AUTO) 0.4 K/uL (0.8-1.0); MONOCYTES % (AUTO) 7.8 % (1.7-9.3); NEUTROPHILS % (AUTO) 71.4 % (42.2-75.2); PLATELET COUNT (AUTO) 187 K/uL (140-450); RED BLOOD CELL COUNT(AUTO) 4.48 MIL/uL (4.20-5.40); RED CELL DISTRIBUTION WIDTH 13.2 % (11.6-13.7); WHITE BLOOD COUNT (AUTO) 5.6 K/uL (4.8-10.8)
[2018-02-08 08:21] LABS: ANION GAP 8.8 (8-16); CARBON DIOXIDE 31.3 mmol/L (21-32); CREATININE 0.6 mg/dL (0.6-1.3); POTASSIUM 4.1 mmol/L (3.5-5.1)
[2018-02-08 08:23] LABS: PROTHROMBIN TIME 10.4 secs (10.8-13.4)
[2018-02-08 08:35] LABS: ALBUMIN 3.5 g/dL (3.4-5.0)
--- NOTE | 2018-02-08 09:00 | NUR ---
PT RESTING IN [facility] AT THIS TIME. VSS. SAFETY PRECAUTIONS IN PLACE, PT NEEDS MET, WILL CONTINUE TO MONITOR.
[2018-02-08] MEDS ORDERED: ALBUTEROL SULFATE/IPRATROPIU 3 ML SOL IH ONE (09:10)
--- NOTE | 2018-02-08 10:07 | NUR ---
RT AT BEDSIDE AT THIS TIME.
[2018-02-08 10:16] LABS: APPEARANCE,URINE CLEAR (CLEAR); BILIRUBIN,URINE NEGATIVE (NEGATIVE); BLOOD, URINE NEGATIVE (NEGATIVE); COLOR,URINE YELLOW (YELLOW); LEUKOCYTE ESTERASE ,URINE NEGATIVE (NEGATIVE); NITRITE, URINE NEGATIVE (NEGATIVE); PH,URINE 5.5 (5.0-9.0); UGLUCOSE NEGATIVE (NEGATIVE)
[2018-02-08] MEDS ORDERED: ACETAMINOPHEN EXTRA STRENGTH 500 MG TAB PO ONE (10:20)
[2018-02-08] MEDS ORDERED: ASPIRIN 325 MG TAB PO ONE (10:55)
[2018-02-08] MEDS ORDERED: AZITHROMYCIN 1,000 MG in DEXTROSE 5% 500 ML IV ONE (10:55)
--- NOTE | 2018-02-08 11:05 | NUR ---
PT RESTING COMFORTABLY IN [facility] AT THIS TIME. VSS. SAFETY PRECAUTIONS IN PLACE AND PT NEEDS MET. WILL CONTINUE TO MONITOR.
[2018-02-08] MEDS ORDERED: ZOLPIDEM 5 MG TAB PO PRN (11:10)
[2018-02-08] MEDS ORDERED: DOCUSATE SODIUM 100 MG GELCAP PO PRN (11:10)
[2018-02-08] MEDS ORDERED: ONDANSETRON 4 MG/2 ML VIAL IM/IVP PRN (11:10)
[2018-02-08] MEDS ORDERED: HYDROcodone/APAP 5/325 MG 1 TAB TAB PO PRN (11:10)
[2018-02-08] MEDS ORDERED: ACETAMINOPHEN 325 MG TAB PO PRN (11:10)
[2018-02-08] MEDS ORDERED: cefTRIAXone 1,000 MG VIAL ONE (11:24)
[2018-02-08] MEDS ORDERED: AZITHROMYCIN 500 MG INJ VIAL IV ONE ×2 (11:24→13:42)
--- NOTE | 2018-02-08 11:55 | NUR ---
unable to give antibiotics, ceftriaxone prepped and delivered to the floor w/ the pt. Nurse Nancy receiving report on MST aware.
--- NOTE | 2018-02-08 11:57 | NUR ---
Patient will be admitted to care of [facility]. Admited to Tele. Will go to room 112 A. Belongings list completed. Report to ROSE rCuz.
[2018-02-08 12:00] VITALS: BP 127/87
--- NOTE | 2018-02-08 12:00 | NUR ---
PATIENT BROUGHT TO UNIT VIA WHEEL CHAIR FROM THE ER. RECEIVED BEDSIDE REPORT. PATIENT ABLE TO AMBULATE FROM THE WHEEL CHAIR TO THE BED. NO SIGNS AND SYMPTOMS OF ACUTE DISTRESS NOTED AT THIS TIME. HAS IV TO THE RIGHT HAND 20G. SITE IS CLEAN, DRY, PATENT AND INTACT. ORIENTED PATIENT TO THE ROOM. EXPLAINED THE CALL LIGHT TO PATIENT AND SHE VERBALIZED UNDERSTANDING. BED IN LOWEST POSITION, SIDE RAILS UP X2, CALL LIGHT PLACED WITHIN REACH. WILL CONTINUE TO MONITOR.
[2018-02-08 13:14] LABS: BARBITURATE, URINE NEG. ng/ml (NEG <=200); BENZODIAZEPINE, URINE POS. ng/mL (NEG <=200); CANNABINOID, URINE NEG. ng/mL (NEG <=50); COCAINE, URINE NEG. ng/mL (NEG <=300); OPIATE, URINE NEG. ng/mL (NEG <=2000); PHENCYCLIDINE SCREEN,URINE NEG. ng/mL (NEG <=25)
[2018-02-08 13:22] LABS: CHOL/HDL RATIO 4.5 (1-4.5); FREE T4 (FREE THYROXINE) 0.47 ng/dL (0.76-1.46); MAGNESIUM 1.8 mg/dL (1.8-2.4); PHOSPHORUS 2.8 mg/dL (2.5-4.9); THYROID STIMULATING HORMONE 0.01 uIU/mL (0.34-3.74)
[2018-02-08] MEDS ORDERED: ALBUTEROL SULFATE/IPRATROPIU 3 ML SOL IH PRN (15:00)
[2018-02-08 16:00] VITALS: BP 134/77
--- NOTE | 2018-02-08 16:00 | NUR ---
PATIENT COMPLAINING OF A HEADACHE. MADE DR HOPE AWARE, SHE STATED SHE WILL PUT TORADOL. WILL FOLLOW THROUGH WITH ORDER.
[2018-02-08] MEDS: KETOROLAC 15 MG/ML VIAL IM PRN (16:31)
--- NOTE | 2018-02-08 17:10 | NUR ---
PATIENT COUGHING A LOT, MADE DR HOPE AWARE. SHE STATED SHE WILL PUT IN AN ORDER.
[2018-02-08] MEDS ORDERED: guaiFENesin DM 200/20 MG-10 ML 10 ML UDC PO PRN (17:35)
--- NOTE | 2018-02-08 19:13 | NUR ---
ENDORSED PATIENT TO BICYCLE REPAIR TECHNICIAN RN FOR CONTINUITY OF CARE. PATIENT IN STABLE CONDITION.
--- NOTE | 2018-02-08 19:15 | NUR ---
RECEIVED PT AWAKE SITTING ON BED TALKING TO FAMILY MEMBERS AT BEDSIDE, VITAL SIGNS STABLE, TOLERABLE HEADACHE AT THIS TIME, WILL MEDICATE PRN, DENIES SOB, OCCASIONAL COUGH NOTED, MAINTAINED ON NPO FOR ULTRASOUND ABDOMEN TONIGHT, IVF INFUSING WELL, SAFETY MEASURES IN PLACE, CALL LIGHT WITHIN REACH.
[2018-02-08 20:00] VITALS: BP 136/80
[2018-02-08] MEDS: METOPROLOL 25 MG TAB PO SCH (20:40)
[2018-02-08] MEDS: methylPREDNISolone SS 40 MG/ML VIAL IVP SCH (20:41)
--- NOTE | 2018-02-08 20:45 | NUR ---
US OF ABDOMEN DONE, MEDICATED PRN FOR HEADACHE WITH NORCO, PT ATE DINNER, TOLERATED WELL, ALL NEEDS ATTENDED.
[2018-02-08] MEDS: NACL 0.9% 1,000 ML IV SCH (20:48)
[2018-02-08] MEDS ORDERED: LEVOFLOXACIN 750 MG/D5W PREMIX 150 ML IV SCH (21:00)
[2018-02-08] MEDS ORDERED: SIMVASTATIN 40 MG TAB PO SCH (21:00)
--- NOTE | 2018-02-08 21:30 | NUR ---
PT BACK FROM CT DEPARTMENT VIA WHEELCHAIR FOR CT HEAD AND SINUS, RESUMED IVF AND IV ANTIBIOTIC, NO SIGNS OF SOB, MONITORED CLOSELY.
[2018-02-09] VITALS: BP 134/80
--- NOTE | 2018-02-09 | NUR ---
PT SLEEPING, EASILY AROUSABLE, VITAL SIGNS STABLE, DENIES ANY PAIN, NO SOB NOTED, IVF INFUSING WELL, CONTINUE TO MONITOR CLOSELY.
[2018-02-09] MEDS: NACL 0.9% 1,000 ML IV SCH (03:48)
[2018-02-09 04:00] VITALS: BP 116/71
[2018-02-09] MEDS: KETOROLAC 15 MG/ML VIAL IM PRN (04:01)
--- NOTE | 2018-02-09 04:01 | NUR ---
PT COMPLAINING OF HEADACHE, VITAL SIGNS STABLE, MEDICATED PRN WITH TORADOL, NO SOB NOTED, OCCASIONAL DRY COUGH NOTED, MONITORED CLOSELY.
--- NOTE | 2018-02-09 06:05 | NUR ---
SEEN PT SLEEPING, NO SIGNS OF DISTRESS, IVF INFUSING WELL, MONITORED CLOSELY.
[2018-02-09 07:09] LABS: BASOPHILS % (AUTO) 0.5 % (0.0-2.0); EOSINOPHILS % (AUTO) 0.1 % (0.0-4.0); HEMATOCRIT 40.1 % (36-48); HEMOGLOBIN 13.8 g/dL (12.0-16.0); LYMPHOCYTES # (AUTO) 0.7 K/uL (2.5-16.5); LYMPHOCYTES % (AUTO) 10.8 % (20.5-51.1); MEAN CORPUSCULAR HEMOGLOBIN 31 pg (27-31); MEAN CORPUSCULAR HGB CONC 34 g/dL (33-37); MEAN CORPUSCULAR VOLUME 90.1 fL (80-94); MONOCYTES # (AUTO) 0.1 K/uL (0.8-1.0); MONOCYTES % (AUTO) 1.7 % (1.7-9.3); NEUTROPHILS # (AUTO) 5.9 K/uL (1.8-7.7); NEUTROPHILS % (AUTO) 86.9 % (42.2-75.2); PLATELET COUNT (AUTO) 214 K/uL (140-450); RED BLOOD CELL COUNT(AUTO) 4.45 MIL/uL (4.20-5.40); RED CELL DISTRIBUTION WIDTH 12.9 % (11.6-13.7); WHITE BLOOD COUNT (AUTO) 6.8 K/uL (4.8-10.8)
--- NOTE | 2018-02-09 07:10 | NUR ---
PT AWAKE, NO SIGNS OF DISTRESS, REPORT GIVEN TO ROSE AGRAWAL FOR CONTINUITY OF CARE.
--- NOTE | 2018-02-09 07:11 | NUR ---
RECEIVED REPORT FROM TRANSPORT CONDUCTOR RN. PATIENT IS AAOX4, HAS NO SIGNS AND SYMPTOMS OF ACUTE DISTRESS NOTED AT THIS TIME. HAS IV TO THE LEFT WRIST 22G. SITE IS CLEAN, DRY, PATENT AND INTACT. INFUSING NS AT 60ML/HR. SITE IS CLEAN, DRY, PATENT AND INTACT. DISCUSSED PLAN OF CARE WITH PATIENT AND SHE VERBALIZED UNDERSTANDING. BED IN LOWEST POSITION, SIDE RAILS UP X2, CALL LIGHT PLACED WITHIN REACH. WILL CONTINUE TO MONITOR.
[2018-02-09 08:00] VITALS: BP 125/69
[2018-02-09 08:01] LABS: ALBUMIN 3.4 g/dL (3.4-5.0); ANION GAP 13.3 (8-16); CARBON DIOXIDE 27.2 mmol/L (21-32); CREATININE 0.7 mg/dL (0.6-1.3); MAGNESIUM 1.6 mg/dL (1.8-2.4); PHOSPHORUS 2.1 mg/dL (2.5-4.9); POTASSIUM 4.5 mmol/L (3.5-5.1); TOTAL BILIRUBIN 0.6 mg/dL (0.0-1.0)
[2018-02-09] MEDS: methylPREDNISolone SS 40 MG/ML VIAL IVP SCH (08:30)
[2018-02-09] MEDS: METOPROLOL 25 MG TAB PO SCH (08:47)
[2018-02-09] MEDS ORDERED: LISINOPRIL 10 MG TAB PO SCH (09:00)
[2018-02-09] MEDS ORDERED: LACTOBACILLUS RHAMNOSUS GG 1 EACH CAP PO SCH (09:00)
[2018-02-09] MEDS ORDERED: ASPIRIN 81 MG TAB.CHEW PO SCH (09:00)
[2018-02-09] MEDS ORDERED: LEVO750T2 PO (09:41)
[2018-02-09] MEDS ORDERED: FLONAS NS (09:41)
[2018-02-09] MEDS ORDERED: LACT10CA PO (09:41)
[2018-02-09] MEDS ORDERED: SIMV40TA5 PO (09:41)
[2018-02-09] MEDS ORDERED: METH4TAB1 PO (09:41)
[2018-02-09] MEDS ORDERED: MAGNESIUM OXIDE 400 MG TAB PO SCH (10:02)
[2018-02-09] MEDS ORDERED: SODIUM PHOS / POTASSIUM PHOS 1 PKT PDR PO SCH (10:02)
[2018-02-09] MEDS ORDERED: ALBU-118 IH (10:50)
--- NOTE | 2018-02-09 11:40 | NUR ---
GAVE PATIENT MAGGARY AND CHARLENE BOO.
--- NOTE | 2018-02-09 12:05 | NUR ---
DISCHARGE ORDER IS IN PLACE. GAVE PATIENT INSTRUCTIONS TO FOLLOW UP WITH PRIMARY CARE PHYSICIAN, OR WITH [facility]. INFORMED HER OF THE MEDICATIONS THAT HAVE BEEN PRESCRIBED TO HER. SHE VERBALIZED UNDERSTANDING. REMOVED IV FROM SITE. CATHETER INTACT. ALL BELONGINGS ARE WITH THE PATIENT, FAMILY AT BEDSIDE. ID BAND REMOVED. PATIENT IN STABLE CONDITION. WILL WALK OUT WITH PATIENT.
[2018-02-09 12:10] LABS: PROLACTIN 10.7 ng/mL (4.8-23.3)
== END 2018-02-09 12:05 | disposition home or self-care (01) | DRG 720 ==
LOC: MED 07:18 → MERGE 11:08 → MTU 11:08
PROVIDERS: ADMIT Family Medicine; ATTEND Family Medicine
DX: A41.9 Sepsis, unspecified organism (principal); J96.00 Acute respiratory failure, unspecified whether with hypoxia or hypercapnia; J18.9 Pneumonia, unspecified organism; E78.00 Pure hypercholesterolemia, unspecified; E66.01 Morbid (severe) obesity due to excess calories; R74.0 Nonspecific elevation of levels of transaminase and lactic acid dehydrogenase [LDH]; J98.11 Atelectasis; M94.0 Chondrocostal junction syndrome [Tietze]; E78.5 Hyperlipidemia, unspecified; E03.9 Hypothyroidism, unspecified; K76.0 Fatty (change of) liver, not elsewhere classified; J32.0 Chronic maxillary sinusitis; J32.3 Chronic sphenoidal sinusitis; M27.40 Unspecified cyst of jaw; Z90.49 Acquired absence of other specified parts of digestive tract; Z90.710 Acquired absence of both cervix and uterus; Z68.35 Body mass index [BMI] 35.0-35.9, adult
CPT/HCPCS: 36415; 36600; 70450; 70486; 71045; 76536; 76705; 80053; 80305; 81003; 81025; 82150; 82550; 82803; 83036; 83605; 83690; 83735; 83880; 84100; 84134; 84146; 84439; 84443; 84479; 84484; 85025; 85610; 85730; 87040; 87081; 87804; 93005; 94640; 96361; 96374; 96375; 99285; J0456; J0696; J1885; J1956; J2405; J2920; J7030; J7060; J7620; Q0092

== ENCOUNTER 2018-04-03 10:56 | Emergency (ER) | payer MEDICAID ==
[~2018-04-03] VITALS: Ht 149.9 cm; Wt 89.8 kg
[~2018-04-03 10:56] MED LIST changes: +ALBU-118 IH; +FLONAS NS; +LACT10CA PO; +LEVO750T2 PO; +METH4TAB1 PO
[2018-04-03 11:03] VITALS: BP 148/89
--- NOTE | 2018-04-03 11:10 | NUR ---
53 YO F BIB FAMILY W/ C/O MID CHEST PAIN RADIATING TO RIGHT SIDE OF FACE & RIGHT ARM NUMBNESS X YESTERDAY MID-MORNING. PT STATED COUGH X 2 DAYS AGO THAT IS DRY. DENIES N/V/FEVER. PT SKIN IS DRY/NON-DIAPHORETIC. PT SPEAKING IN FULL, COMPLETE SENTENCES THAT ARE APPROPRIATE AND COHERENT. PT PRESENTS CALM AND RELAXED. AAOX4. GCS 15. CMS INTACT. RR EVEN AND UNLABORED. LUNGS CLEAR. ABD SOFT, NON-TENDER. ER MD NOTIFIED. PT NEEDS MET. SAFETY PRECAUTIONS IN PLACE. WILL CONTINUE TO MONITOR.
--- NOTE | 2018-04-03 11:18 | NUR ---
PT AMBULATES TO BED 4 Addendum: 04/03/18 at 1124 by MED1 REPORT GIVEN TO MARÍA ROSE.
--- NOTE | 2018-04-03 11:21 | NUR ---
DR POOLE EVALUATING AT BEDSIDE
[2018-04-03] MEDS ORDERED: NITROGLYCERIN 0.4 MG TAB SL ONE (11:25)
[2018-04-03] MEDS ORDERED: ASPIRIN 325 MG TAB PO ONE (11:25)
[2018-04-03] MEDS ORDERED: NITROGLYCERIN 2% 1 GM PKT TP ONE (11:25)
--- NOTE | 2018-04-03 11:37 | NUR ---
PT TAKEN TO CT IN [place]
[2018-04-03 11:43] LABS: BASOPHILS # (AUTO) 0.1 K/uL (0.00-0.22); BASOPHILS % (AUTO) 1.1 % (0.0-2.0); EOSINOPHILS # (AUTO) 0.1 K/uL (0-0.4); EOSINOPHILS % (AUTO) 2.6 % (0.0-4.0); HEMATOCRIT 44.4 % (36-48); MEAN CORPUSCULAR HEMOGLOBIN 31 pg (27-31); MEAN CORPUSCULAR HGB CONC 34 g/dL (33-37); MEAN CORPUSCULAR VOLUME 90.3 fL (80-94); MONOCYTES # (AUTO) 0.2 K/uL (0.8-1.0); MONOCYTES % (AUTO) 4.6 % (1.7-9.3); NEUTROPHILS # (AUTO) 2.3 K/uL (1.8-7.7); NEUTROPHILS % (AUTO) 48.7 % (42.2-75.2); PLATELET COUNT (AUTO) 180 K/uL (140-450); RED BLOOD CELL COUNT(AUTO) 4.91 MIL/uL (4.20-5.40); WHITE BLOOD COUNT (AUTO) 4.6 K/uL (4.8-10.8)
--- NOTE | 2018-04-03 11:46 | NUR ---
PT RETURNED FROM CT
[2018-04-03 12:02] LABS: PROTHROMBIN TIME 9.7 secs (10.8-13.4)
[2018-04-03 12:04] LABS: ALBUMIN 3.6 g/dL (3.4-5.0); ANION GAP 7.3 (8-16); CARBON DIOXIDE 30.1 mmol/L (21-32); CREATININE 0.5 mg/dL (0.6-1.3); POTASSIUM 3.4 mmol/L (3.5-5.1); TOTAL BILIRUBIN 0.5 mg/dL (0.0-1.0)
--- NOTE | 2018-04-03 13:04 | NUR ---
pt taken to ct scan at this time via sadie
[2018-04-03] MEDS ORDERED: ACETAMINOPHEN EXTRA STRENGTH 500 MG TAB PO ONE (14:20)
[2018-04-03 14:55] VITALS: BP 125/72
--- NOTE | 2018-04-03 14:56 | NUR ---
Patient discharged with v/s stable. Written and verbal after care instructions given and explained. Patient alert, oriented and verbalized understanding of instructions. Ambulatory with steady gait. All questions addressed prior to discharge. ID band removed. Patient advised to follow up with PMD. Rx of Ativan and Motrin given. Patient educated on indication of medication including possible reaction and side effects. Opportunity to ask questions provided and answered.
== END 2018-04-03 14:56 | disposition home or self-care (01) ==
LOC: MED 10:56
DX: R07.89 Other chest pain (principal); R06.02 Shortness of breath; R20.0 Anesthesia of skin; R94.31 Abnormal electrocardiogram [ECG] [EKG]; I10 Essential (primary) hypertension; Z79.899 Other long term (current) drug therapy; Z90.49 Acquired absence of other specified parts of digestive tract
CPT/HCPCS: 36415; 70450; 71045; 71275; 80053; 81002; 83880; 84484; 85025; 85610; 85730; 93005; 99285; Q0092; Q9967

== ENCOUNTER 2018-05-09 09:58 | Emergency (ER) | payer MEDICAID ==
[~2018-05-09] VITALS: Ht 160 cm; Wt 86.2 kg
--- NOTE | 2018-05-09 10:04 | NUR ---
PT AMBULATED TO ER BED 08
[2018-05-09 10:06] VITALS: BP 138/72
--- NOTE | 2018-05-09 10:10 | NUR ---
PATIENT c/o redness pruritus neck area x last night --worse today denies new foods, medication, or products used at home; full clear speech, no tongue or lip swelling noted, no drooling; denies sob. VSS; PATIENT POSITIONED FOR COMFORT; HOB ELEVATED; BEDRAILS UP X1; BED DOWN. ER MD MADE AWARE OF PT STATUS.
[2018-05-09] MEDS ORDERED: KETOROLAC 60 MG/2 ML VIAL IM ONE (10:40)
[2018-05-09 11:08] VITALS: BP 138/72
--- NOTE | 2018-05-09 11:08 | NUR ---
Patient discharged with v/s stable. Written and verbal after care instructions given and explained. Patient alert, oriented and verbalized understanding of instructions. Ambulatory with steady gait. All questions addressed prior to discharge. ID band removed. Patient advised to follow up with PMD. Rx of BENADRYL, PREDNISONE, AND MOTRIN given. Patient educated on indication of medication including possible reaction and side effects. Opportunity to ask questions provided and answered.
== END 2018-05-09 11:08 | disposition home or self-care (01) ==
LOC: MED 09:58
DX: R21 Rash and other nonspecific skin eruption (principal); R51 Headache; Z79.899 Other long term (current) drug therapy; Z90.49 Acquired absence of other specified parts of digestive tract
CPT/HCPCS: 96372; 99283; J1885

== ENCOUNTER 2018-05-20 14:27 | Emergency (ER) | payer MEDICAID ==
[~2018-05-20] VITALS: Ht 152.4 cm; Wt 89.8 kg
[2018-05-20 14:30] VITALS: BP 118/76
--- NOTE | 2018-05-20 14:30 | NUR ---
patient to chair E awaiting avaiable bed. er md kern made aware of patient status. gave report to John ROSE.
--- NOTE | 2018-05-20 14:47 | NUR ---
Agapito marques in [facility] - 05/20/18 at 1448 by MEDHT PT AMBULATES TO YANELIS
--- NOTE | 2018-05-20 14:48 | NUR ---
PT AMBULATES TO BED 11
--- NOTE | 2018-05-20 14:50 | NUR ---
PT. bib self with c/o pruritic rash to upper chest and neck x since last night, progressively getting worse. Patient does not know what she is allergic to.Patient states similiar episode before. Patient reports difficultly breathing. No angioedema noted. Clear speech with full sentences. RR are even and tachypneic. Patient also reports of intermittnet midsternal cp upon inspiration 6/10 pain that is non radiating. Safety precautions implemented, VSS. Will continue to monitor.
[2018-05-20] MEDS ORDERED: ALBUTEROL 0.083% 2.5 MG/3 ML NEBU INH ONE (15:35)
[2018-05-20] MEDS ORDERED: FAMOTIDINE 20 MG TAB PO ONE (15:35)
[2018-05-20] MEDS ORDERED: diphenhydrAMINE 50 MG CAP PO ONE (15:35)
[2018-05-20] MEDS ORDERED: predniSONE 20 MG TAB PO ONE (15:35)
[2018-05-20] MEDS ORDERED: IPRATROPIUM 0.02% 0.5 MG/2.5 ML NEBU INH ONE (15:35)
--- NOTE | 2018-05-20 15:50 | NUR ---
RT AT BEDSIDE AT THIS TIME, RR EVEN AND UNLABORED. DAUGHTER AT BEDSIDE. WILL CONTINUE TO MONITOR.
--- NOTE | 2018-05-20 15:52 | NUR ---
X RAY AT BEDSIDE AT THIS TIME
--- NOTE | 2018-05-20 15:55 | NUR ---
ADMITTING DX: RASH HX: ASTHMA PNA BRONCHITIS LOC AWAKE AND ALERT RESPONSIVE C/O SOB GRAND DAUGHTER AT BEDSIDE EDUCATION PROVIDED TO PATIENT WITH ACKNOWLEDGEMENT OF [facility]ER[facility] AND RESPIRATORY DRUGS [facility] GIVEN ORDERED ENCOURAGED PATIENT FOR INTERMITENT DEEP BREATHING DURING THERAPY TOLERATED WELL WITHOUT INCIDENT
[2018-05-20 16:56] VITALS: BP 120/87
--- NOTE | 2018-05-20 16:57 | NUR ---
Patient discharged with v/s stable. Written and verbal after care instructions given and explained. Patient alert, oriented and verbalized understanding of instructions. Ambulatory with steady gait. All questions addressed prior to discharge. ID band removed. Patient advised to follow up with PMD. Rx of albuterol, epi pen, pepcid, prednisone given. Patient educated on indication of medication including possible reaction and side effects. Opportunity to ask questions provided and answered.
== END 2018-05-20 16:57 | disposition home or self-care (01) ==
LOC: MED 14:27
DX: J98.01 Acute bronchospasm (principal); T78.40XA Allergy, unspecified, initial encounter; E78.5 Hyperlipidemia, unspecified; Z79.2 Long term (current) use of antibiotics; Z79.899 Other long term (current) drug therapy; X58.XXXA Exposure to other specified factors, initial encounter
CPT/HCPCS: 71045; 94640; 99284; J7512; J7613; J7644; Q0092; Q0163

== ENCOUNTER 2018-07-30 15:55 | Emergency (ER) | payer MEDICAID ==
[~2018-07-30] VITALS: Ht 154.9 cm; Wt 89.4 kg
[2018-07-30 15:57] VITALS: BP 143/81
--- NOTE | 2018-07-30 16:19 | NUR ---
Patient ambulated to bed 6 with family. RN evaluating patient at bedside.
--- NOTE | 2018-07-30 16:25 | NUR ---
BIB DAUGHTER C/O CHEST PAIN, 7/10 PRESSURE PAIN RADIATING TO THE MID BACK RIGHT SIDE. PT STATES SHE HAS BODY ACHE AND LEGS GO NUMB. + DIZZINESS -V/DSKIN IS PINK/WARM/DRY; AAOX4 WITH EVEN AND STEADY GAIT; LUNGS CLEAR BL; HR EVEN AND REGULAR; VSS; PATIENT POSITIONED FOR COMFORT; HOB ELEVATED; BEDRAILS UP X2; BED DOWN. ER MD MADE AWARE OF PT STATUS.
--- NOTE | 2018-07-30 16:36 | NUR ---
DR TOPETE AT BEDSIDE.
[2018-07-30] MEDS ORDERED: KETOROLAC 60 MG/2 ML VIAL IM ONE (16:40)
--- NOTE | 2018-07-30 16:45 | NUR ---
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
--- NOTE | 2018-07-30 17:14 | NUR ---
patient states chest pain is better but now her legs are bothering her she states they feel "tired".
--- NOTE | 2018-07-30 18:29 | NUR ---
Patient discharged with v/s stable. Written and verbal after care instructions given and explained. Patient alert, oriented and verbalized understanding of instructions. Ambulatory with steady gait. All questions addressed prior to discharge. ID band removed. Patient advised to follow up with PMD. Rx of CLARITIN, NAPROSYN given. Patient educated on indication of medication including possible reaction and side effects. Opportunity to ask questions provided and answered.
[2018-07-30 18:30] VITALS: BP 138/82
== END 2018-07-30 18:29 | disposition home or self-care (01) ==
LOC: MED 15:55
DX: B34.9 Viral infection, unspecified (principal); Z90.49 Acquired absence of other specified parts of digestive tract; Z79.899 Other long term (current) drug therapy
CPT/HCPCS: 36415; 71045; 87804; 93005; 96372; 99284; J1885

== ENCOUNTER 2018-09-06 11:36 | Emergency (ER) | payer MEDICAID ==
[~2018-09-06] VITALS: Ht 160 cm; Wt 89.0 kg
[2018-09-06 11:40] VITALS: BP 118/68
--- NOTE | 2018-09-06 12:27 | NUR ---
53 YO F BIB FAMILY W/ C/O A RED RASH TO HER CHEST AND RIGHT SIDE X 3 DAYS. DENIES N/V/D/FEVER. REPORTS THAT SHE HAS BL HAND PAIN. STATES THAT THE CHEST DISCOMFORT STARTED AT THE SAME TIME THE RASH. STATES THE RASH IS VERY ITCHY. DENIES DYSPNEA. RR EVEN AND UNLABORED. LUNGS CLEAR. SPEAKING IN FULL, COMPLETE SENTENCES. SKIN WARM/DRY/COLOR APPROPRIATE. HX HIGH CHOLESTROL RX IBUPROFEN 2 HOURS AGO
[2018-09-06] MEDS ORDERED: ALBUTEROL 0.083% 2.5 MG/3 ML NEBU INH ONE (12:35)
--- NOTE | 2018-09-06 13:49 | NUR ---
Patient discharged with v/s stable. Written and verbal after care instructions given and explained. Patient verbalized understanding. Ambulatory with steady gait. All questions addressed prior to discharge. Advised to follow up with PMD.
[2018-09-06 13:50] VITALS: BP 117/75
== END 2018-09-06 13:49 | disposition home or self-care (01) ==
LOC: MED 11:36
DX: L23.9 Allergic contact dermatitis, unspecified cause (principal); J45.909 Unspecified asthma, uncomplicated; Z79.2 Long term (current) use of antibiotics; Z79.1 Long term (current) use of non-steroidal anti-inflammatories (NSAID); Z79.899 Other long term (current) drug therapy
CPT/HCPCS: 81002; 81025; 94640; 99283; J7613; Q0163; 93005

== ENCOUNTER 2018-10-30 21:32 | Emergency (ER) | payer MEDICAID ==
[~2018-10-30] VITALS: Ht 154.9 cm; Wt 85.7 kg
[2018-10-30 21:56] VITALS: BP 125/60
--- NOTE | 2018-10-30 21:59 | NUR ---
TO BED # 3 AMBULATORY.
--- NOTE | 2018-10-30 22:00 | NUR ---
53/F PRESENTS TO ED WITH DAUGHTER, C/O 02/18 R SHOULDER, R BACK, CHEST AND BLE PAIN, X5 DAYS. PT REPORTS ONSET OF SYMPTOMS AT REST, DENIES TRAUMA/ INJURY, FEVER, N/V, OR COUGH. PT REPORTS DIZZINESS AT THIS TIME. AOX4, GCS 15, SKIN NORMAL DRY AND WARM, RR EVEN AND UNLABORED. HX PNA AND BRONCHITIS IN THE PAST, BUT NOT RECENT OTC TYLENOL WITHOUT RELIEF.
--- NOTE | 2018-10-30 22:10 | NUR ---
PER ER MD, EKG NOT NEEDED AT THIS TIME.
[2018-10-30] MEDS ORDERED: KETOROLAC 60 MG/2 ML VIAL IM ONE (23:25)
[2018-10-31] MEDS ORDERED: MORPHINE SULFATE 4 MG/ML SYR IM ONE (00:30)
[2018-10-31 00:51] VITALS: BP 132/75
== END 2018-10-31 00:51 | disposition home or self-care (01) ==
LOC: MED 21:32
DX: R07.89 Other chest pain (principal); M54.9 Dorsalgia, unspecified; M25.511 Pain in right shoulder; R06.02 Shortness of breath; Z79.2 Long term (current) use of antibiotics; Z79.1 Long term (current) use of non-steroidal anti-inflammatories (NSAID); Z79.899 Other long term (current) drug therapy
CPT/HCPCS: 96372; 99283; J1885; J2270

== ENCOUNTER 2019-06-27 16:34 | Emergency (ER) | payer MEDICAID ==
[~2019-06-27] VITALS: Ht 151.1 cm; Wt 89.4 kg
[2019-06-27 16:49] VITALS: BP 140/67
--- NOTE | 2019-06-27 16:55 | NUR ---
PT AMB TO BED 4 WITH STEADY GAIT
--- NOTE | 2019-06-27 17:06 | NUR ---
54/F C/O GENERALIZED HEADACHE, RT NECK PAIN, AND NAUSEA X 3 DAYS CONTINUOUS. DENIES VOMITING. DENIES RECENT INJURY. STATES IT FEELS LIKE A "KNOT" PRESENT IN THE RT NECK SOMETIMES. STATES IT DOES NOT FEEL LIKE USUAL MIGRAINE. STATES PHOTOPHOBIA, PHONOPHOBIA. PAIN IS DESCRIBED PULSATING. PMH- DM, ASTHMA, HIGH CHOLESTEROL, MIGRAINES
--- NOTE | 2019-06-27 17:51 | NUR ---
PT SLEEPING IN BED, RESPIRATIONS EVEN AND UNLABORED.
[2019-06-27] MEDS ORDERED: hydrOXYzine HCL 25 MG TAB PO ONE ×2 (18:15→19:05)
[2019-06-27] MEDS ORDERED: LORazepam 1 MG TAB PO ONE (18:15)
[2019-06-27] MEDS ORDERED: KETOROLAC 60 MG/2 ML VIAL IM ONE ×2 (18:15→19:05)
--- NOTE | 2019-06-27 18:27 | NUR ---
PT NOT IN ROOM AT THIS TIME. AT CT SCAN. WILL ADMIN ORDERED MED WHEN PT BACK.
--- NOTE | 2019-06-27 19:49 | NUR ---
Dr. Mendoza examining patient.
[2019-06-27 20:11] VITALS: BP 138/65
--- NOTE | 2019-06-27 20:11 | NUR ---
Patient discharged with v/s stable. Written and verbal after care instructions given and explained. Patient alert, oriented and verbalized understanding of instructions. Ambulatory with steady gait. All questions addressed prior to discharge. ID band removed. Patient advised to follow up with PMD. Rx of FIORICET given. Patient educated on indication of medication including possible reaction and side effects. Opportunity to ask questions provided and answered.
== END 2019-06-27 20:11 | disposition home or self-care (01) ==
LOC: MED 16:34
DX: R51 Headache (principal); M54.2 Cervicalgia; R11.0 Nausea; G43.909 Migraine, unspecified, not intractable, without status migrainosus; E11.9 Type 2 diabetes mellitus without complications; J45.909 Unspecified asthma, uncomplicated; E78.00 Pure hypercholesterolemia, unspecified; Z79.899 Other long term (current) drug therapy
CPT/HCPCS: 70450; 82948; 96372; 99284; J1885

== ENCOUNTER 2019-10-02 14:47 | Emergency (ER) | payer MEDICAID ==
[~2019-10-02] VITALS: Ht 149.9 cm; Wt 88.5 kg
[2019-10-02 14:53] VITALS: BP 117/73
--- NOTE | 2019-10-02 15:25 | NUR ---
PT AMBULATED TO BATHROOM, STEADY GAIT
--- NOTE | 2019-10-02 15:31 | NUR ---
XR AT BEDSIDE.
--- NOTE | 2019-10-02 15:39 | NUR ---
54 Y/F PRESENTS TO ED WITH DAUGHTER FOR CHEST PRESSURE THAT STARTED LAST NIGHT AT 1AM. PRESSURE IS CONSTATN 8/10 AND RADIATES TO LEFT UPPER BACK. NO ALLEVIATING OR AGGRAVATING FACTORS. PT ALSO CO OF DIZZINESS AND SOB. PT A & O, RR EVEN. PT HOLDING ONTO CHEST WITH PALM OF HAND. PT ALSO REPORTS SHE LOST HER SON LAST WEEK. DAUGHTER AT BEDSIDE. PMH-HYPERCHOLESTEROLEMIA NKDA
--- NOTE | 2019-10-02 15:48 | NUR ---
PT PLACED ON 2L O2 VIA NC. PT PLACED ON 3 LEAD EKG. VSS.
[2019-10-02 16:23] LABS: BASOPHILS % (AUTO) 0.4 % (0.0-2.0); EOSINOPHILS # (AUTO) 0.1 K/uL (0-0.4); EOSINOPHILS % (AUTO) 1.1 % (0.0-4.0); HEMATOCRIT 38.7 % (36-48); HEMOGLOBIN 13.2 g/dL (12.0-16.0); LYMPHOCYTES % (AUTO) 36.3 % (20.5-51.1); MEAN CORPUSCULAR HEMOGLOBIN 31 pg (27-31); MEAN CORPUSCULAR HGB CONC 34 g/dL (33-37); MEAN CORPUSCULAR VOLUME 92.3 fL (80-94); MONOCYTES # (AUTO) 0.3 K/uL (0.8-1.0); NEUTROPHILS # (AUTO) 3.2 K/uL (1.8-7.7); NEUTROPHILS % (AUTO) 56.2 % (42.2-75.2); PLATELET COUNT (AUTO) 204 K/uL (140-450); RED BLOOD CELL COUNT(AUTO) 4.19 MIL/uL (4.20-5.40); WHITE BLOOD COUNT (AUTO) 5.6 K/uL (4.8-10.8)
[2019-10-02 17:11] LABS: ALBUMIN 3.8 g/dL (3.4-5.0); ANION GAP 12.4 (8-16); CARBON DIOXIDE 28.1 mmol/L (21-32); CREATININE 0.6 mg/dL (0.6-1.3); POTASSIUM 3.5 mmol/L (3.5-5.1); TOTAL BILIRUBIN 0.6 mg/dL (0.0-1.0)
[2019-10-02] MEDS ORDERED: MORPHINE SULFATE 2 MG/ML SYR IVP ONE (17:20)
--- NOTE | 2019-10-02 17:31 | NUR ---
WASTED 1MG/0.5ML MORPHINE BY ROSE MOROCHO
--- NOTE | 2019-10-02 17:33 | NUR ---
WASTED 1 MG MORPHINE WITH ROSE MOSQUEDA
[2019-10-02 17:59] LABS: CREATINE KINASE MB 0.5 ng/mL (0-3.6)
--- NOTE | 2019-10-02 18:11 | NUR ---
NADR, DECREASED PAIN 3/10
[2019-10-02 18:21] LABS: FIBRINOGEN 294 mg/dL (200-400)
[2019-10-02 18:29] LABS: D-DIMER 201 ng/ml (0-400)
--- NOTE | 2019-10-02 19:03 | NUR ---
DR. ROMERO AT BEDSIDE REVIEWING RESULTS.
--- NOTE | 2019-10-02 19:07 | NUR ---
PT AMBULATED TO BATHROOM, STEADY GAIT.
--- NOTE | 2019-10-02 19:08 | NUR ---
PTS WILL BE DRIVING HER HOME.
[2019-10-02 19:20] VITALS: BP 140/78
== END 2019-10-02 19:20 | disposition home or self-care (01) ==
LOC: MED 14:47
DX: R09.1 Pleurisy (principal); B34.9 Viral infection, unspecified; E78.00 Pure hypercholesterolemia, unspecified; Z79.899 Other long term (current) drug therapy
CPT/HCPCS: 36415; 71045; 80053; 82550; 82553; 84484; 85025; 85379; 85384; 96374; 99285; J2270; Q0092

== ENCOUNTER 2020-07-06 15:00 | Emergency (ER) | payer MEDICAID ==
[~2020-07-06] VITALS: Ht 152.4 cm; Wt 86.2 kg
[2020-07-06 16:36] VITALS: BP 129/64
--- NOTE | 2020-07-06 17:55 | NUR ---
Agapito marques in [facility] - 07/06/20 at 1758 by [facility] PCR swab collected and sent to lab.
--- NOTE | 2020-07-06 17:57 | NUR ---
Note jerald in EDM - 07/06/20 at 1758 by [facility] Patient discharged with v/s stable. Written and verbal after care instructions given and explained. Patient alert, oriented and verbalized understanding of instructions. Ambulatory with steady gait. All questions addressed prior to discharge. ID band removed. Patient advised to follow up with PMD. Rx of promethazine given. Patient educated on indication of medication including possible reaction and side effects. Opportunity to ask questions provided and answered.
--- NOTE | 2020-07-06 18:14 | NUR ---
PT TAKEN TO BED 3. COVID PRECAUTIONS IN PLACE.
--- NOTE | 2020-07-06 18:23 | NUR ---
55 yo f c/o cough, body aches, chest pain, fever x 4 days. states daughter is positive for covid and she was exposed. denies testing for covid. in er, vss. coarse breath sounds on all lung gates. pt resting in bed. ermd made aware of pt status. hx high cholesterol nka
--- NOTE | 2020-07-06 18:35 | NUR ---
lab at bedside
[2020-07-06 18:56] LABS: BASOPHILS % (AUTO) 0.4 % (0.0-2.0); EOSINOPHILS % (AUTO) 0.4 % (0.0-4.0); HEMATOCRIT 39.5 % (36-48); HEMOGLOBIN 13.5 g/dL (12.0-16.0); LYMPHOCYTES # (AUTO) 0.9 K/uL (2.5-16.5); LYMPHOCYTES % (AUTO) 32.2 % (20.5-51.1); MEAN CORPUSCULAR HEMOGLOBIN 31 pg (27-31); MEAN CORPUSCULAR HGB CONC 34 g/dL (33-37); MEAN CORPUSCULAR VOLUME 91.2 fL (80-94); MONOCYTES # (AUTO) 0.2 K/uL (0.8-1.0); MONOCYTES % (AUTO) 8.1 % (1.7-9.3); NEUTROPHILS # (AUTO) 1.6 K/uL (1.8-7.7); NEUTROPHILS % (AUTO) 58.9 % (42.2-75.2); PLATELET COUNT (AUTO) 156 K/uL (140-450); RED BLOOD CELL COUNT(AUTO) 4.33 MIL/uL (4.20-5.40); RED CELL DISTRIBUTION WIDTH 13.2 % (11.6-13.7); WHITE BLOOD COUNT (AUTO) 2.7 K/uL (4.8-10.8)
[2020-07-06 19:11] LABS: C-REACTIVE PROTEIN QUANT 2.7 mg/dL (0.0-0.9)
[2020-07-06 19:13] LABS: PROTHROMBIN TIME 9.5 secs (10.8-13.4)
[2020-07-06 19:14] LABS: ALBUMIN 3.5 g/dL (3.4-5.0); ANION GAP 12.5 (8-16); CARBON DIOXIDE 25.7 mmol/L (21-32); CREATININE 0.6 mg/dL (0.6-1.3); POTASSIUM 3.2 mmol/L (3.5-5.1); TOTAL BILIRUBIN 0.3 mg/dL (0.0-1.0)
--- NOTE | 2020-07-06 19:26 | NUR ---
geo swab done and brought to lab
--- NOTE | 2020-07-06 19:26 | NUR ---
urine collected. walked to lab.
--- NOTE | 2020-07-06 19:27 | NUR ---
influenza and rsv swabs done. brought to lab.
--- NOTE | 2020-07-06 19:28 | NUR ---
RECEIVED REPORT FROM GILBERTO ROSE FOR CONTINUITY OF CARE.
[2020-07-06 19:31] LABS: RSV NEGATIVE (NEGATIVE)
[2020-07-06] MEDS ORDERED: AMOXICILLIN 500 MG CAP PO STA (19:34)
[2020-07-06] MEDS ORDERED: AZITHROMYCIN 250 MG TAB PO STA ×2 (19:34→19:51)
--- NOTE | 2020-07-06 19:39 | NUR ---
ERMD AT BEDSIDE RE-EVALUATING PT.
[2020-07-06 19:40] LABS: APPEARANCE,URINE HAZY (CLEAR); BILIRUBIN,URINE NEGATIVE (NEGATIVE); BLOOD, URINE NEGATIVE (NEGATIVE); COLOR,URINE YELLOW (YELLOW); LEUKOCYTE ESTERASE ,URINE NEGATIVE (NEGATIVE); NITRITE, URINE NEGATIVE (NEGATIVE); UGLUCOSE NEGATIVE (NEGATIVE)
[2020-07-06 19:47] LABS: LACTATE DEHYDROGENASE 254 U/L (81-234)
[2020-07-06] MEDS ORDERED: AMOXICILLIN 500 MG CAP PO ONE (19:55)
--- NOTE | 2020-07-06 20:12 | NUR ---
MYNOR ESCALANTE AT BEDSIDE RE-EVALUATING PT.
--- NOTE | 2020-07-06 20:35 | NUR ---
PT OBSERVED LAYING IN BED IN NO ACUTE DISTRESS NOTED. BREATHING EVEN AND UNLABORED. WAS NOTED WITH A DRY COUGH. DENIED HAVING ANY PAIN OR DISCOMFORT. NO FEVER OR C/O SOB. HEART SOUNDS WERE EVEN AND REGULAR. 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 BED WAS LOCKED AND PLACED IN LOWEST POSITION.
--- NOTE | 2020-07-06 21:09 | NUR ---
IV removed, catheter intact and site benign. Applied folded 4x4 gauze and tape to stop bleeding.
[2020-07-06 21:10] VITALS: BP 118/64
--- NOTE | 2020-07-06 21:10 | NUR ---
Patient discharged with v/s stable. Written and verbal after care instructions given and explained. Patient alert, oriented and verbalized understanding of instructions. Ambulatory with steady gait. All questions addressed prior to discharge. ID band removed. Patient advised to follow up with PMD. Rx of AMOXICILLIN, AZITHROMYCIN given. Patient educated on indication of medication including possible reaction and side effects. Opportunity to ask questions provided and answered.
== END 2020-07-06 21:10 | disposition home or self-care (01) ==
LOC: MED 15:00
DX: J18.9 Pneumonia, unspecified organism (principal); Z79.899 Other long term (current) drug therapy; Z90.49 Acquired absence of other specified parts of digestive tract; Z20.828 Contact with and (suspected) exposure to other viral communicable diseases
CPT/HCPCS: 36415; 36600; 71045; 80053; 81003; 82550; 82728; 82803; 83605; 83615; 83880; 84484; 85025; 85379; 85384; 85610; 85730; 86140; 87040; 87086; 87420; 87804; 93005; 99285

== ENCOUNTER 2020-12-30 11:12 | Emergency (ER) | payer MEDICAID ==
[~2020-12-30] VITALS: Ht 149.9 cm; Wt 74.8 kg
[2020-12-30 11:19] VITALS: BP 143/72
[2020-12-30] MEDS ORDERED: [UNRECOGNIZED DRUG - CODE] TP (11:34)
[2020-12-30 12:07] VITALS: BP 143/72
== END 2020-12-30 12:05 | disposition home or self-care (01) ==
LOC: MED 11:12
DX: L84 Corns and callosities (principal); B07.9 Viral wart, unspecified; E78.00 Pure hypercholesterolemia, unspecified
CPT/HCPCS: 99282

== ENCOUNTER 2021-05-12 16:48 | Inpatient (IN) | payer MEDICAID ==
[~2021-05-12] VITALS: Ht 147.3 cm; Wt 88.9 kg
[~2021-05-12 16:48] MED LIST changes: +[UNRECOGNIZED DRUG - CODE] TP
[2021-05-12 16:51] VITALS: BP 136/88
--- NOTE | 2021-05-12 17:05 | NUR ---
EKG DONE AT BEDSIDE BY EMT.
--- NOTE | 2021-05-12 17:06 | NUR ---
56 Y/O FEMALE BIB FAMILY FROM HOME, C/O CHEST PAIN, SOB FOR 3 DAYS WITH DRY COUGH. DENIES N/V/D, CONSTIPATION, CHILLS, FEVER, DYSURIA, OR HEMATURIA. PATIENT IS AMBULATORY, SKIN IS INTACT, A&OX4, LUNGS CLEAR THROUGHOUT, PLACED IN GOWN AND ON MONITOR FOR FURTHER EVALUATION. PMH: HYPERLIPIDEMIA, PNEUMONIA NKA MED: DENIES
--- NOTE | 2021-05-12 17:18 | NUR ---
MD GRIFFITH AT BEDSIDE EVALUATING PATIENT.
--- NOTE | 2021-05-12 17:20 | NUR ---
PER ERMD 12 LEAD WAS DONE ON PT AND CAME BACK NSR AT 94 HR.
--- NOTE | 2021-05-12 17:48 | NUR ---
PER ERMD 12 LEAD WAS DONE ON PT AND CAME BACK NSR AT 92 HR.
[2021-05-12 18:12] VITALS: BP 113/65
[2021-05-12 18:25] LABS: BASOPHILS % (AUTO) 0.6 % (0.0-2.0); EOSINOPHILS # (AUTO) 0.1 K/uL (0-0.4); EOSINOPHILS % (AUTO) 1.8 % (0.0-4.0); HEMATOCRIT 38.1 % (36-48); HEMOGLOBIN 13.1 g/dL (12.0-16.0); LYMPHOCYTES # (AUTO) 1.9 K/uL (2.5-16.5); LYMPHOCYTES % (AUTO) 40.7 % (20.5-51.1); MEAN CORPUSCULAR HEMOGLOBIN 33 pg (27-31); MEAN CORPUSCULAR HGB CONC 35 g/dL (33-37); MEAN CORPUSCULAR VOLUME 94.8 fL (80-94); MONOCYTES # (AUTO) 0.4 K/uL (0.8-1.0); MONOCYTES % (AUTO) 8.9 % (1.7-9.3); NEUTROPHILS # (AUTO) 2.3 K/uL (1.8-7.7); PLATELET COUNT (AUTO) 215 K/uL (140-450); RED BLOOD CELL COUNT(AUTO) 4.02 MIL/uL (4.20-5.40); RED CELL DISTRIBUTION WIDTH 13.3 % (11.6-13.7); WHITE BLOOD COUNT (AUTO) 4.7 K/uL (4.8-10.8)
[2021-05-12 19:10] LABS: ALBUMIN 3.6 g/dL (3.4-5.0); ANION GAP 11.6 (8-16); CARBON DIOXIDE 28.2 mmol/L (21-32); CREATININE 0.8 mg/dL (0.6-1.3); POTASSIUM 3.8 mmol/L (3.5-5.1); TOTAL BILIRUBIN 0.5 mg/dL (0.0-1.0)
--- NOTE | 2021-05-12 19:22 | NUR ---
REPORT AND CONTINUATION OF CARE GIVEN TO ROSE MURILLO.
--- NOTE | 2021-05-12 19:46 | NUR ---
CLEO ISDHU [phone]
[2021-05-12] MEDS ORDERED: ACETAMINOPHEN EXTRA STRENGTH 500 MG TAB ONE (20:16)
[2021-05-12] MEDS ORDERED: ACETAMINOPHEN EXTRA STRENGTH 500 MG TAB PO PRN (20:40)
--- NOTE | 2021-05-12 21:43 | NUR ---
Patient does not wish to proceed with medical care recommended by DR PÉREZ. Patient given information related to possible complications, up to and including , which could occur as a result of leaving hospital at this time. Patient verbalizes understanding of risks involved leaving against medical advice. Patient has signed AMA form.
[2021-05-12] MEDS ORDERED: HYDROcodone/APAP 7.5/325 MG 1 TAB PO PRN (22:55)
[2021-05-12] MEDS ORDERED: ZOLPIDEM 5 MG TAB PO PRN (22:55)
[2021-05-12] MEDS ORDERED: ONDANSETRON 4 MG/2 ML VIAL IM/IVP PRN (22:55)
[2021-05-12] MEDS ORDERED: POTASSIUM CHLORIDE 10 MEQ TABER PO PRN (22:55)
[2021-05-12] MEDS ORDERED: DOCUSATE SODIUM 100 MG GELCAP PO PRN (22:55)
[2021-05-12] MEDS ORDERED: ACETAMINOPHEN 325 MG TAB PO PRN (22:55)
[2021-05-12] MEDS ORDERED: NACL 0.9% 1,000 ML IV SCH (22:55)
[2021-05-12] MEDS ORDERED: guaiFENesin DM 200/20 MG-10 ML 10 ML UDC PO PRN (22:55)
[2021-05-12] MEDS ORDERED: NITROGLYCERIN 0.4 MG TAB SL PRN (23:00)
[2021-05-12 23:53] LABS: CHOL/HDL RATIO 5.9 (1-4.5); FREE T4 (FREE THYROXINE) 0.98 ng/dL (0.76-1.46); PHOSPHORUS 3.4 mg/dL (2.5-4.9); THYROID STIMULATING HORMONE 0.86 uIU/mL (0.34-3.74)
[2021-05-13 03:18] LABS: PROTHROMBIN TIME 9.8 secs (10.8-13.4)
--- NOTE | 2021-05-13 07:12 | NUR ---
PATIENT HAS BEEN SCREENED AND CATEGORIZED MODERATE NUTRITION RISK. PATIENT WILL BE SEEN WITHIN 3-5 DAYS OF ADMISSION. 05/16/21-05/18/21 OLESYA BLANCHARD MS, RDN
[2021-05-13] MEDS ORDERED: LOVASTATIN PO SCH (09:00)
[2021-05-13] MEDS ORDERED: ATORVASTATIN 20 MG TAB PO SCH (09:00)
[2021-05-13] MEDS ORDERED: GABAPENTIN 300 MG CAP PO SCH (09:00)
[2021-05-13] MEDS ORDERED: lisinopriL 5 MG TAB PO SCH (09:00)
[2021-05-13] MEDS ORDERED: METOPROLOL 25 MG TAB PO SCH (09:00)
[2021-05-13] MEDS ORDERED: PANTOPRAZOLE 40 MG TABEC PO SCH (09:00)
[2021-05-13] MEDS ORDERED: ECOTRIN 81 MG TABEC PO SCH (09:00)
[2021-05-14 06:06] LABS: T4 (THYROXINE) 8.1 ug/dL (4.5-12.0)
== END 2021-05-12 21:43 | disposition left against medical advice (07) | DRG 203 ==
LOC: MED 16:48 → MTU 20:03
PROVIDERS: ADMIT Family Medicine; ATTEND Family Medicine
DX: R07.9 Chest pain, unspecified (principal); E78.5 Hyperlipidemia, unspecified; Z53.29 Procedure and treatment not carried out because of patient's decision for other reasons
CPT/HCPCS: 36415; 71045; 80053; 82150; 83036; 83690; 83735; 83880; 84100; 84436; 84439; 84443; 84479; 84484; 85025; 85610; 85730; 93005; 99285; Q0092

== ENCOUNTER 2022-04-11 18:32 | Emergency (ER) | payer MEDICAID, OTHER ==
[~2022-04-11] VITALS: Ht 149.9 cm; Wt 85.5 kg
[~2022-04-11 18:32] MED LIST changes: +BENZ-300 MM; -BENZ1LOZ98 MM
[2022-04-11 18:53] VITALS: BP 143/97
--- NOTE | 2022-04-11 18:58 | NUR ---
PT AMB TO BED 9
--- NOTE | 2022-04-11 19:09 | NUR ---
Dr. Ravi examining patient.
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
[2022-04-11] MEDS ORDERED: IBUPROFEN 800 MG TAB PO ONE (19:25)
--- NOTE | 2022-04-11 19:40 | NUR ---
pt taken to radiology via
[2022-04-11] MEDS ORDERED: IBUP-1878 PO (21:29)
[2022-04-11 21:40] VITALS: BP 134/82
== END 2022-04-11 21:40 | disposition home or self-care (01) ==
LOC: MED 18:32
DX: M25.511 Pain in right shoulder (principal); M54.9 Dorsalgia, unspecified; M54.2 Cervicalgia; R05.9 Cough, unspecified; F41.9 Anxiety disorder, unspecified; Z79.899 Other long term (current) drug therapy; V89.2XXA Person injured in unspecified motor-vehicle accident, traffic, initial encounter; Y93.89 Activity, other specified; Y92.89 Other specified places as the place of occurrence of the external cause; Y99.8 Other external cause status
CPT/HCPCS: 72050; 72072; 72110; 73030; 99284

== ENCOUNTER 2022-06-22 08:33 | Emergency (ER) | payer OTHER ==
[~2022-06-22] VITALS: Ht 167.6 cm; Wt 74.8 kg
[~2022-06-22 08:33] MED LIST changes: +IBUP-1878 PO
[2022-06-22 08:40] VITALS: BP 143/78
--- NOTE | 2022-06-22 08:54 | NUR ---
WALKED IN C/O RIGHT SIDED ARM AND SHOULDER PAIN ONSET 2 DAYS S/P FALL. DENIES TRAUMA TO HEAD, DENIES KO. NO BRUISING OR SWELLING NOTED. RANGE OF MOTION INTACT. AMBULATORY, VITALS STABLE.
[2022-06-22] MEDS ORDERED: KETOROLAC 30 MG/ML VIAL IM ONE (09:00)
--- NOTE | 2022-06-22 09:05 | NUR ---
PT WENT TO XR
--- NOTE | 2022-06-22 09:15 | NUR ---
PT BACK FRO XR
== END 2022-06-22 09:20 | disposition home or self-care (01) ==
LOC: MED 08:33
DX: S49.91XA Unspecified injury of right shoulder and upper arm, initial encounter (principal); W18.30XA Fall on same level, unspecified, initial encounter; Y93.89 Activity, other specified; Y92.89 Other specified places as the place of occurrence of the external cause; Y99.8 Other external cause status
CPT/HCPCS: 73030; 96372; 99283; J1885

== ENCOUNTER 2022-11-26 14:51 | Emergency (ER) | payer OTHER ==
[~2022-11-26] VITALS: Ht 152.4 cm; Wt 81.6 kg
[2022-11-26 14:57] VITALS: BP 145/69
--- NOTE | 2022-11-26 15:09 | NUR ---
57/F WALKED IN C/O SOB AND BODY ACHE X 1 DAY. AFEBRILE AT TRIAGE. DENIES COUGH. AAO4, AMBULATORY, VITALS STABLE. Denies PMH NKA
[2022-11-26] MEDS ORDERED: KETOROLAC 30 MG/ML VIAL IM ONE (15:25)
[2022-11-26] MEDS ORDERED: IBUP-2213 PO (15:56)
[2022-11-26] MEDS ORDERED: PENI500T20 PO (15:56)
== END 2022-11-26 16:00 | disposition home or self-care (01) ==
LOC: MED 14:51
DX: J02.8 Acute pharyngitis due to other specified organisms (principal); Z20.822 Contact with and (suspected) exposure to COVID-19; B96.89 Other specified bacterial agents as the cause of diseases classified elsewhere; Z79.899 Other long term (current) drug therapy; Z90.49 Acquired absence of other specified parts of digestive tract; Z98.890 Other specified postprocedural states
CPT/HCPCS: 71045; 87081; 87426; 96372; 99284; J1885; Q0092

== ENCOUNTER 2022-11-28 14:10 | Emergency (ER) | payer OTHER ==
[~2022-11-28] VITALS: Ht 152.4 cm; Wt 81.6 kg
[~2022-11-28 14:10] MED LIST changes: +IBUP-2213 PO; +PENI500T20 PO
[2022-11-28 14:26] VITALS: BP 124/75
[2022-11-28] MEDS ORDERED: ATA25 PO (15:24)
--- NOTE | 2022-11-28 15:33 | NUR ---
pt assessment completed by ermd tomlin, no nursing interventions required at this time.
[2022-11-28] MEDS ORDERED: LORazepam 0.5 MG TAB PO ONE (15:40)
[2022-11-28 16:15] VITALS: BP 124/75
--- NOTE | 2022-11-28 16:15 | NUR ---
Patient discharged with v/s stable. Written and verbal after care instructions given and explained. Patient alert, oriented and verbalized understanding of instructions. Ambulatory with steady gait. All questions addressed prior to discharge. ID band removed. Patient advised to follow up with PMD. Rx of ATARAX (SENT) given. Patient educated on indication of medication including possible reaction and side effects. Opportunity to ask questions provided and answered.
== END 2022-11-28 16:15 | disposition home or self-care (01) ==
LOC: MED 14:10
DX: F32.9 Major depressive disorder, single episode, unspecified (principal); F41.0 Panic disorder [episodic paroxysmal anxiety]; Z79.899 Other long term (current) drug therapy; Z79.1 Long term (current) use of non-steroidal anti-inflammatories (NSAID); Z79.2 Long term (current) use of antibiotics
CPT/HCPCS: 93005; 99283

== ENCOUNTER 2023-02-17 11:02 | Emergency (ER) | payer OTHER ==
[~2023-02-17] VITALS: Ht 137.2 cm; Wt 88.7 kg
[~2023-02-17 11:02] MED LIST changes: +ATA25 PO
[2023-02-17 11:11] VITALS: BP 119/54; PULSE 87; RESP 20; TEMP 97.2; O2SAT 96
--- NOTE | 2023-02-17 11:19 | NUR ---
Patient ambulated to bed 2 with steady gait.
[2023-02-17] MEDS ORDERED: KETOROLAC 30 MG/ML VIAL IM ONE (11:20)
--- NOTE | 2023-02-17 11:39 | NUR ---
Patient being taken to X-ray via wheelchair.
--- NOTE | 2023-02-17 11:44 | NUR ---
Patient returned from imaging. Call light is within reach. All needs met by staff.
--- NOTE | 2023-02-17 11:48 | NUR ---
57 y/o female bib self with c/o right shoulder pain that radiates to right side of neck x 4 days. Per patient, pain increased today around 0300. Denies any injury, fall or trauma. Denies taking any pain medication. Denies any heavy lifting. Patient does report bumping shoulder but states "pain was already there prior to bumping it." No obvious signs of trauma or deformity noted. Medical History: HTN NKDA
[2023-02-17] MEDS ORDERED: DICL100G5 TP (12:01)
[2023-02-17] MEDS ORDERED: NAPR-1704 PO (12:01)
[2023-02-17 12:26] VITALS: BP 120/61; PULSE 84; RESP 18; TEMP 97.4; O2SAT 96
--- NOTE | 2023-02-17 12:26 | NUR ---
Pain is decreasing with medication. Patient discharged with v/s stable. Written and verbal after care instructions given. Patient alert, oriented and verbalized understanding of instructions. Ambulatory with steady gait. All questions addressed prior to discharge. ID band removed. Patient advised to follow up with PMD. Rx of Diclofenac Sodium and Naproxen given. Opportunity to ask questions provided and answered. COPY OF X-RAY GIVEN TO PATIENT.
--- NOTE | 2023-02-17 12:30 | NUR ---
The patient's care was reviewed and supervised by HAMILTON ODONNELL RN.
== END 2023-02-17 12:26 | disposition home or self-care (01) ==
LOC: MED 11:02
DX: M25.511 Pain in right shoulder (principal); I10 Essential (primary) hypertension; Z79.899 Other long term (current) drug therapy
CPT/HCPCS: 73030; 96372; 99283; J1885

== ENCOUNTER 2023-03-20 13:48 | Emergency (ER) | payer OTHER ==
[~2023-03-20] VITALS: Ht 137.2 cm; Wt 89.0 kg
[~2023-03-20 13:48] MED LIST changes: +DICL100G5 TP; +NAPR-1704 PO
[2023-03-20 14:06] VITALS: BP 128/68; PULSE 76; RESP 20; TEMP 97.6; O2SAT 98
--- NOTE | 2023-03-20 14:26 | NUR ---
pt swabbed for covid(geo) and flu. walked to lab
[2023-03-20] MEDS ORDERED: IBUP-2213 PO (16:25)
[2023-03-20] MEDS ORDERED: MECL-303 PO (16:25)
[2023-03-20] MEDS ORDERED: SUD30 PO (16:25)
--- NOTE | 2023-03-20 16:59 | NUR ---
Patient discharged with v/s stable. Written and verbal after care instructions given and explained. Patient alert, oriented and verbalized understanding of instructions. Ambulatory with steady gait. All questions addressed prior to discharge. ID band removed. Patient advised to follow up with PMD. Rx of MECLIZINE, SUDAFED given. Patient educated on indication of medication including possible reaction and side effects. Opportunity to ask questions provided and answered.
== END 2023-03-20 16:59 | disposition home or self-care (01) ==
LOC: MED 13:48
DX: B34.9 Viral infection, unspecified (principal); Z20.822 Contact with and (suspected) exposure to COVID-19; Z79.899 Other long term (current) drug therapy
CPT/HCPCS: 99283

== ENCOUNTER 2023-04-12 11:31 | Emergency (ER) | payer OTHER ==
[~2023-04-12] VITALS: Ht 134.6 cm; Wt 86.2 kg
[~2023-04-12 11:31] MED LIST changes: +MECL-303 PO; +SUD30 PO
[2023-04-12 11:42] VITALS: BP 137/72; PULSE 95; RESP 15; TEMP 97.4; O2SAT 98
[2023-04-12 13:03] LABS: BASOPHILS % (AUTO) 0.6 % (0.0-2.0); EOSINOPHILS # (AUTO) 0.1 K/uL (0-0.4); EOSINOPHILS % (AUTO) 1.8 % (0.0-4.0); HEMATOCRIT 39.4 % (36-48); HEMOGLOBIN 13.6 g/dL (12.0-16.0); LYMPHOCYTES # (AUTO) 1.9 K/uL (2.5-16.5); LYMPHOCYTES % (AUTO) 32.4 % (20.5-51.1); MEAN CORPUSCULAR HEMOGLOBIN 31 pg (27-31); MEAN CORPUSCULAR HGB CONC 34 g/dL (33-37); MEAN CORPUSCULAR VOLUME 90.7 fL (80-94); MONOCYTES # (AUTO) 0.3 K/uL (0.8-1.0); MONOCYTES % (AUTO) 5.8 % (1.7-9.3); NEUTROPHILS # (AUTO) 3.4 K/uL (1.8-7.7); NEUTROPHILS % (AUTO) 59.4 % (42.2-75.2); PLATELET COUNT (AUTO) 245 K/uL (140-450); RED BLOOD CELL COUNT(AUTO) 4.35 MIL/uL (4.20-5.40); RED CELL DISTRIBUTION WIDTH 13.7 % (11.6-13.7); WHITE BLOOD COUNT (AUTO) 5.7 K/uL (4.8-10.8)
[2023-04-12 13:19] LABS: ALBUMIN 3.3 g/dL (3.4-5.0); ANION GAP 7.1 (8-16); CALCIUM 8.2 mg/dL (8.5-10.1); CARBON DIOXIDE 31.3 mmol/L (21-32); CREATININE 0.6 mg/dL (0.6-1.3); POTASSIUM 3.4 mmol/L (3.5-5.1); TOTAL BILIRUBIN 0.4 mg/dL (0.0-1.0)
[2023-04-12] MEDS ORDERED: IBUP-2213 PO ×2 (13:47→14:11)
[2023-04-12 14:10] VITALS: BP 115/61; PULSE 78; RESP 15; TEMP 97.7; O2SAT 97
== END 2023-04-12 14:10 | disposition home or self-care (01) ==
LOC: MED 11:31
DX: U07.1 COVID-19 (principal); R07.9 Chest pain, unspecified; R06.02 Shortness of breath; I10 Essential (primary) hypertension; F32.9 Major depressive disorder, single episode, unspecified; Z79.899 Other long term (current) drug therapy
CPT/HCPCS: 36415; 71045; 80053; 83880; 84484; 85025; 85379; 93005; 99285